=== PATIENT | female | born 1970 | race Caucasian/White ===

== ENCOUNTER → 2016-06-11 | Outpatient (CLI) | payer OTHER ==
[2015-05-05 10:48] VITALS: BP 108/64
[~2016-06-11] MED LIST: ALPR0.25 PO; CHOL100013 PO; CYCL10TA2 PO; DEXT5TAB27 PO; ESTR1PAT10 TP; ESTR1PAT27 TD; FLUO20CA16 PO; GABA-585 PO; GABA-586 PO; IBUP-1060 PO; IBUP1TAB84 PO; LAMO100T5 PO; META800T PO; META800T21 PO; METF500T PO; ONDA4TAB7 PO; OXYC-250 PO; OXYC10TA PO; OXYC10TA32 PO; OXYC20TA PO; OXYC20TA34 PO; OXYC30TA64 PO; Oxycodone Hcl/Acetaminophen PO; ROPI0.5T PO; TEST200V3 IM; TIZA4TAB PO; allergy medication
--- NOTE | 2016-06-12 02:23 | PAIN ---
DATE OF SERVICE: 06/11/2016 DIAGNOSES: Lumbar radiculopathy with lumbar degenerative disk disease, spinal stenosis and post-lumbar laminectomy syndrome. HISTORY OF PRESENT ILLNESS: The patient is a 45-year-old female who returns for followup status post medication management with OxyContin and oxycodone, also Metaxalone for muscle relaxation. The patient returns with good analgesia with the current medication regimen. Patient reports no new motor or sensory deficits, no new bowel or bladder incontinence or other complaints. She has some pain in the low back, bilateral lower extremities, but has been exercising very consistently and has actually lost a fair amount of weight since this process started, doing well with her medication regimen. Has been very stable with it, has appropriate K-TRACS reporting today and appropriate urinalysis today as well. Patient reports that the pain is anywhere from a sharp to a dull alternating pain in the low back and legs and aching as well with radiating pain in the low back and bilateral lower extremities, mostly the posterior gluteus, posterior thighs and rates it a 5 on a scale of 10 at its worse. Patient again has been increasing her activity with greater ease and comfort, ____ she is sleeping well at night and is having some stressors at work, but ____ keeping her from her workout regimens and routines and keeping herself as fit as she can. Patient reports no new motor or sensory deficits, no new bowel or bladder incontinence or other complaints. PHYSICAL EXAMINATION: VITAL SIGNS: Today patient's blood pressure is 118/72, pulse 76, respirations 18, temperature 98.0 degrees Fahrenheit, height is 5 feet 10 inches, weighs 201 pounds. GENERAL: The patient is awake, alert, oriented, appropriate, very pleasant demeanor. HEENT: Head shows normocephalic, atraumatic. Extraocular movements are intact, symmetrical. Oral cavity, mucous membranes are moist and pink. Dentition is intact. NECK: Shows anterior throat supple without palpable lymphadenopathy noted. Swallow reflex is symmetrical. Neck shows full rotation and motion of cervical spine without difficulty. CHEST: Shows normal on inspection. Breath sounds clear to auscultation bilaterally. HEART: Shows S1 and S2 clear. ABDOMEN: Soft, nontender, nondistended. No palpable organomegaly noted. No rebound or guarding demonstrated. BACK: Shows spine grossly in midline. Normal appearing thoracic kyphosis. Some mild flattening of the lumbar lordotic curvature. Well-healed surgical scar is noted in the lumbar distribution, lumbar paraspinous musculature shows some moderate tenderness with palpation, but only diffusely in the middle and lower distribution of the paraspinous muscles bilaterally and appears roughly symmetrical with no evidence of atrophy or hypertrophy. Patient shows good rotation and motion both laterally as well as extension and flexion without exacerbation of pain. EXTREMITIES: Lower extremities show deep tendon reflexes at 1+ in the patellar and tendo calcaneus tendons are equal. Motor exam is strong with 5/5 dorsiflexion and extension. Quadriceps and hamstring flexion is symmetrical on exam today. Peripheral pulses are 1+ posterior tibial and dorsalis pedis pulses. No peripheral edema is noted. No clubbing, no cyanosis. Options were discussed with the patient at this time. Patient's old chart was reviewed, as her current medication regimen and updated. Current review of systems updated today as well. We will refill patient's oxycodone, but we will decreases the extended release now from 20 mg to 10 mg q. 12 hours and maintain the breakthrough at 10 mg as well immediate release up to 5 times a day if necessary. We discussed reducing this as well on her next visit and we will have her try and work on this as well on her own reducing it over the next few months. Patient was given 90 ____ prescription for each of these with instructions and side effects to be aware of. Also refill patient's muscle relaxer with instruction, side effects to be aware of as well. Patient was counseled as to her activity level, to maintain her workout regimen and exercise as well as diet and we will follow up in approximately 90 days or sooner if necessary. COURTNEY MAJOR MD DR: MARCELO/roly JOB#: [id number] / [id number]
== END | disposition home or self-care (01) ==
LOC: PNCL 07:56
PROVIDERS: ATTEND Anesthesiology
DX: M51.16 Intervertebral disc disorders with radiculopathy, lumbar region (principal); M48.06 Spinal stenosis, lumbar region; M96.1 Postlaminectomy syndrome, not elsewhere classified
CPT/HCPCS: 99212

== ENCOUNTER → 2016-09-05 | Outpatient (CLI) | payer OTHER ==
[2015-05-05 10:48] VITALS: BP 108/64
--- NOTE | 2016-09-06 09:42 | PAIN ---
DATE OF SERVICE: 09/05/2016 DIAGNOSES: Lumbar radiculopathy with lumbar spinal stenosis, degenerative disk disease and post-lumbar laminectomy syndrome. HISTORY OF PRESENT ILLNESS: The patient is a 46-year-old female who returns for followup status post medication management with OxyContin and oxycodone, also taking Robaxin for muscle relaxation and ibuprofen. The patient reports that she has been doing very stable with her medication regimen, reports about a 75% improvement overall with the medications and without significant side effects. No constipation, no nausea, dizziness, drowsiness or itching. The patient reports her pain is anywhere from 6-8 on a scale of 10 depending on activity, worse with being on her feet, walking for distances, but has been sleeping fairly well at night except for the past week, she has been having some difficulty sleeping, but not because of pain issues. The patient reports she has had a lot of her mind, has had difficulty sleeping because of this, but she repositions and gets out of bed or walks around, this helps the sleep afterwards. The patient reports still pain in the mid back, upper back, shoulders, neck, low back, bilateral hips, bilateral lower extremities, worse on the right than the left with some radicular pain, describes as aching, dull, tight, shooting, stabbing, burning with severe, constant, radiating pain as well, which relieved with changing position or sitting after walking, also some pain in the right lower quadrant and again with recent stressful social situations, she has had increased pain in all these areas, but has not been increasing her medication usage secondary to the emotional stress. The patient relates that she is also receiving some counseling at [facility], which she feels has been beneficial thus far as well. PHYSICAL EXAMINATION: VITAL SIGNS: Today: The patient's blood pressure 145/95, pulse 98, respirations are 18, temperature 98.2 degrees Fahrenheit, height is 5 feet 8 inches, weight is 198 pounds. GENERAL: The patient is awake, alert, oriented, appropriate, very pleasant demeanor. HEENT: Head shows normocephalic, atraumatic. Extraocular movements are intact and symmetrical. Oral cavity, mucous membranes are moist and pink. Dentition is intact. NECK: Shows anterior throat supple without palpable lymphadenopathy noted. Swallow reflex is symmetrical. CHEST: Shows normal on inspection with breath sounds clear to auscultation bilaterally. HEART: Shows S1 and S2 clear. No murmurs auscultated. ABDOMEN: Soft, nontender, nondistended with some well-healed surgical scarring noted, very mild tenderness on the right lower quadrant palpation without rebound or guarding demonstrated. BACK: The patient's back shows spine grossly midline. Some mild flattening of lumbar lordotic curvature, slight increase in thoracic kyphosis, lumbar lordotic curvature is slightly flattened, lumbar paraspinous musculature shows roughly symmetrical with inspection, but without significant radiation. On palpation, only mild tenderness with palpation bilaterally. No tenderness over the sacrum or sacroiliac regions. EXTREMITIES: Lower extremities showed deep tendon reflexes at 1+ in the patellar and tendo calcaneus tendons. Motor exam is strong with dorsiflexion, extension, quadriceps and hamstring flexion. Options were discussed with the patient and the patient's old chart was reviewed and her current medication regimen updated, current review of systems updated today as well and we will refill the patient's oxycodone as well as OxyContin, Duexis, which is ibuprofen and Skelaxin for muscle relaxation. The patient was given instruction as well as side effects to be aware of with the medication. Also, the patient to follow up with her primary care physician. We discussed her having primary check estrogen levels as she has had some hair loss recently and has had some decreased energy, also to check the blood pressure as it was somewhat elevated today as well. The patient will follow up in approximately 2 months, was given instructions and discussed side effects to be aware of once again. COURTNEY MAJOR MD DR: MARCELO/roly JOB#: [id number] / [id number]
== END | disposition home or self-care (01) ==
LOC: PNCL 13:29
PROVIDERS: ATTEND Anesthesiology
DX: M48.06 Spinal stenosis, lumbar region (principal); M96.1 Postlaminectomy syndrome, not elsewhere classified
CPT/HCPCS: 99212

== ENCOUNTER → 2016-11-05 | Outpatient (CLI) | payer OTHER ==
[2015-05-05 10:48] VITALS: BP 108/64
[~2016-11-05] MED LIST changes: +BUSP10TA PO; +DEXT20CA7 PO; +LURA40TA PO; +META-21 PO; -META800T21 PO; -OXYC-250 PO; +OXYC-328 PO; -OXYC10TA32 PO; +OXYC10TA45 PO; +TRAZ50TA15 PO
== END | disposition home or self-care (01) ==
LOC: PNCL 07:27
PROVIDERS: ATTEND Anesthesiology
DX: M48.06 Spinal stenosis, lumbar region (principal); M51.16 Intervertebral disc disorders with radiculopathy, lumbar region; M96.1 Postlaminectomy syndrome, not elsewhere classified
CPT/HCPCS: 99212

== ENCOUNTER → 2016-12-26 | Outpatient (CLI) | payer OTHER ==
[2015-05-05 10:48] VITALS: BP 108/64
[~2016-12-26] MED LIST changes: +NALO25TA2 PO; +VENL37.57 PO
--- NOTE | 2016-12-26 11:42 | PAIN ---
DATE OF SERVICE: 12/26/2016 DIAGNOSES: Lumbar radiculopathy with lumbar degenerative disk disease, spinal stenosis and post-lumbar laminectomy syndrome. HISTORY OF PRESENT ILLNESS: Ms. Yancey is a 46-year-old female who returns for followup, status post medication management with OxyContin and oxycodone. We have been weaning her down slowly with this. She is having some good results with this as well. Still having some significant pain. Reports that last month has had increased pain in the low back and right leg as well as the mid back, upper back and some in the shoulders as well. The patient reports her pain is 10 on a scale of 10 at its worst, is a 5 at least, and is currently about 8 on a scale of 10, which is her average. The patient reports it awakens her from sleep, but she sleeps about 4-7 hours at night, but she can reposition, take pain medication, get out of bed, change positions, and get back to sleep. The patient reports no new motor or sensory deficits. She is having some significant counseling intervention at this point with some traumatic event counseling and they are changing antidepressants and she has just recently started on venlafaxine, which has been keeping her awake to some extent. Also has had multiple medication changes in the last month with psychiatric and antidepressants changes, and feels that her pain has been higher over the last month from that as well as some emotional stress as well. The patient reports no new motor or sensory deficits, no new bowel or bladder incontinence or other complaints, but still significant pain as noted. No side effects with the medication, and reports that overall about 75% improvement with the pain medication, except for the last month has been more like about 60%. PHYSICAL EXAMINATION: VITAL SIGNS: Today, the patient's blood pressure 140/95, pulse 78, respirations 18, temperature 98.2 degrees Fahrenheit, height is 5 feet 9 inches, weighs 207 pounds. GENERAL: The patient is awake, alert, oriented, appropriate, very pleasant demeanor. HEENT: Shows normocephalic, atraumatic. Extraocular movements are intact and symmetrical. Oral cavity, mucous membranes are moist and pink. Dentition is intact. NECK: Shows anterior throat supple, without palpable lymphadenopathy noted. Swallow reflex is symmetrical. MUSCULOSKELETAL: Neck shows full rotational motion of the cervical spine without difficulty including extension and flexion. The patient's back shows spine grossly midline. Normal appearing thoracic kyphosis and mild flattening of lumbar lordotic curvature. Previously well-healed surgical scars noted in the lumbar distribution. Lumbar paraspinous musculature shows some moderate tenderness with palpation, but only diffusely in the lower lumbar distribution bilaterally. The patient shows good rotational motion both laterally as well as extension and flexion with only very minor pain reported. The patient's lower extremities show deep tendon reflexes 2+/4 in the patellar, 1+ in tendo calcaneus tendons. Motor exam is 5/5 with dorsiflexion, extension, quadriceps and hamstring flexion and equal and symmetrical. ASSESSMENT AND PLAN: Options were discussed with the patient. The patient's old chart was reviewed, as her current medication regimen updated. Current review of systems updated today as well. We will refill the patient's OxyContin, oxycodone, Duexis, Movantik and metaxalone. The patient will go for a day or two without the metaxalone and see if there is any significant effects with this, since she is not sure if it is helping with muscle relaxation. If not, we will eliminate this medication. The patient was counseled on activity level as well as medication regimen and side effects to be aware of, but follow up in approximately 2 months or sooner as necessary. COURTNEY MAJOR MD DR: MARCELO/roly JOB#: [id number] / [id number]
== END | disposition home or self-care (01) ==
LOC: PNCL 08:13
PROVIDERS: ATTEND Anesthesiology
DX: M51.16 Intervertebral disc disorders with radiculopathy, lumbar region (principal); M96.1 Postlaminectomy syndrome, not elsewhere classified
CPT/HCPCS: 99212

== ENCOUNTER → 2017-02-20 | Outpatient (CLI) | payer OTHER ==
[2015-05-05 10:48] VITALS: BP 108/64
[~2017-02-20] MED LIST changes: +ALPR1TAB2 PO; +VENL150T PO
--- NOTE | 2017-02-20 11:39 | PAIN ---
DATE OF SERVICE: 02/20/2017 DIAGNOSES: 1. Lumbar radiculopathy with lumbar degenerative disk disease, spinal stenosis and post-lumbar laminectomy syndrome. 2. Abdominal pain. HISTORY OF PRESENT ILLNESS: The patient is a 46-year-old female who returns for followup status post medication management with oxycodone and OxyContin. The patient has been on stable regimen now for some time. She has had good success with her medications thus far, with decreasing her oxycodone from 30 to 20 to 10, and OxyContin as well decreased to 10 mg size. The patient reports still some significant pain in the low back, mid back and bilateral lower extremities, more on the right than the left, but still fairly well controlled with the medication without significant side effects except for constipation. The patient is taking Movantik, but the effect of it has been less pronounced in the last month or so. The patient reports no new motor or sensory deficits, no new bowel or bladder incontinence, but still significant constipation. Otherwise, the patient is doing fairly well with about 75% improvement in the pain with the medications without other side effects. The patient reports no new motor or sensory deficits, no new bowel or bladder incontinence or other complaints, rates her pain as an 8 on a scale of 10 at its worse, 6-7 on average and a 5 today, she has had at its lowest level. The patient reports an aching, sharp type shooting, cramping, stabbing, tingling, burning, radiating, occasionally constant. The patient has had some emotional issues that she is working through as well, has seen a psychologist and psychiatrist with good results by her report. The patient reports it is better when she is resting at night, worse on her feet and walking, wakes her from sleep occasionally. She needed reposition or take the pain medication and get back to sleep. 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 PHYSICAL EXAMINATION: VITAL SIGNS: Today, the patient's blood pressure is 143/96, pulse 91, respirations are 18, temperature 98.2 degrees Fahrenheit, height is 5 feet 9 inches, weighs 211 pounds. GENERAL: The patient is awake, alert, oriented, appropriate, very pleasant demeanor. HEENT: Head shows normocephalic, atraumatic. Extraocular movements are intact and symmetrical. Oral cavity shows mucous membranes moist and pink. Dentition is intact. NECK: Shows anterior throat supple without palpable lymphadenopathy noted. Swallow reflex is symmetrical. CHEST: Shows normal on inspection. Breath sounds are clear to auscultation bilaterally. HEART: Shows S1 and S2 clear. No murmurs auscultated. ABDOMEN: Obese, soft, nontender, nondistended. No palpable organomegaly is noted. No rebound or guarding demonstrated. BACK: Shows spine grossly midline. Some mild flattening of lumbar lordotic curvature, normal thoracic kyphotic curvature and previously well-healed surgical scars again noted. Paraspinous musculature is symmetrical on inspection and palpation, still some [id number] tenderness only diffusely bilaterally without radiation. The patient has good rotation and motion of the lumbar spine, both laterally as well as extension and flexion without difficulty. EXTREMITIES: Lower extremities showed deep tendon reflexes 1+ in the patellar and tendo calcaneus tendons are equal. Motor exam is strong with 5/5 dorsiflexion, extension and equal. Peripheral pulses are 1+ posterior tibial bilaterally. No peripheral edema is noted. Options were discussed with the patient and the patient's old chart was reviewed as her current medication regimen updated. Current review of systems updated today as well. We will refill the patient's OxyContin as well as oxycodone at 10 mg each, with instructions on side effects to be aware of. Also, we will change Movantik to Symproic with instructions on side effects to be aware of. The patient was given samples of these and refill patient's muscle relaxant as well. The patient was given instructions as well as side effects with all of the medications and will follow up in approximately 2 months, will be given 2 month prescriptions or sooner if necessary. COURTNEY MAJOR MD DR: MARCELO/roly JOB#: [id number] / [id number]
== END | disposition home or self-care (01) ==
LOC: PNCL 09:53
PROVIDERS: ATTEND Anesthesiology
DX: M51.16 Intervertebral disc disorders with radiculopathy, lumbar region (principal); M48.061 Spinal stenosis, lumbar region without neurogenic claudication
CPT/HCPCS: 99212

== ENCOUNTER → 2017-04-12 | Outpatient (CLI) | payer OTHER ==
[2015-05-05 10:48] VITALS: BP 108/64
--- NOTE | 2017-04-12 14:30 | PAIN ---
DATE OF SERVICE: 04/12/2017 DIAGNOSES: 1. Lumbar radiculopathy with lumbar degenerative disk disease, lumbar spinal stenosis and post-lumbar laminectomy syndrome. 2. Abdominal pain. HISTORY OF PRESENT ILLNESS: The patient is a 46-year-old female who returns for followup status post medication management with both OxyContin and oxycodone 10 mg each with good results. The patient is also taking metaxalone and Duexis for anti-inflammatory. The patient reports a very stable regimen. She has been very well controlled with her medication. I had been increasing her activity with some greater ease and comfort, overall about a 50% improvement. The patient reports still significant pain in the base of the neck, shoulders, upper back, mid back, low back, especially across the low back radiating to the posterior gluteus, posterior thigh on the right side more than left, some on the right side, lower abdominal pain as well, but nothing that is new. No new motor or sensory deficits, no new bowel or bladder incontinence. The patient rates her pain a 9 on a scale of 10 at its worst, 7 on average, is 4 at its least and is a 5 today. The patient reports it is aching, sharp, tight, shooting, burning, tingling and becoming more severe, more constant in the low back with activity, but better with sitting or lying down. The patient reports it does not awaken her from sleep at night. She is getting about 8 hours of sleep and is sleeping well. The patient reports no new motor or sensory deficits or other changes. PHYSICAL EXAMINATION: VITAL SIGNS: Today, the patient's blood pressure is 138/92, pulse 99, respirations 18, temperature 98.6 degrees Fahrenheit. She is 5 feet 9 inches, weighs 214 pounds. GENERAL: The patient is awake, alert, oriented, appropriate, very pleasant demeanor. HEENT: Head shows normocephalic, atraumatic. Extraocular movements intact, symmetrical. Oral cavity: Mucous membranes moist and pink. Dentition is intact. NECK: Shows anterior throat supple without palpable lymphadenopathy noted. Swallow reflex is symmetrical. CHEST: Shows normal on inspection. Breath sounds clear to auscultation bilaterally. HEART: Shows S1, S2 clear. ABDOMEN: Soft, nontender, nondistended. No palpable organomegaly is noted. No rebound or guarding demonstrated. Some minor tenderness with palpation in the right lower quadrant, but again no palpable abnormalities. BACK: Shows spine grossly in midline. Slight exaggeration of thoracic kyphosis and mild flattening of lumbar lordotic curvature. A previously well-healed surgical scar is noted in lumbar distribution. Lumbar paraspinous muscle shows symmetrical on inspection with palpation shows some moderate tenderness throughout the upper, middle, lower distribution of the paraspinous muscles bilaterally, but only diffusely without radiation. No tenderness over the sacrum or sacroiliac regions. The patient shows good rotational motion of lumbar spine, both laterally greater than 10 degrees right and left as well as extension greater than 10 degrees, forward flexion 45 degrees without significant pain reported. EXTREMITIES: Lower extremities show deep tendon reflexes at 1+ in the patellar and tendo calcaneus tendons are equal. Motor exam is strong with 5/5 dorsiflexion and extension, quadriceps and hamstring flexion is symmetrical. Peripheral pulses are 1+ posterior tibial. No peripheral edema is noted. Options were discussed with the patient. The patient's old chart was reviewed as her current medication regimen and updated. Current review of systems is updated today as well. We will proceed with refill of the patient's medications oxycodone, OxyContin as well as metaxalone and Duexis. The patient has had appropriate K-TRACS reporting to date as well as appropriate urinalysis to date. Return to clinic in approximately 2 months, was given 2-month prescription with instructions, side effects to be aware of discussed. The patient also was encouraged to increase activity as tolerated. She has been doing some stretching exercises on her own as well as trying to walk each day and she is still going to the gym about 4 days a week and encouraged her to maintain this as well. COURTNEY MAJOR MD DR: MARCELO/roly JOB#: [id number] / [id number]
== END | disposition home or self-care (01) ==
LOC: PNCL 08:11
PROVIDERS: ATTEND Anesthesiology
DX: M51.16 Intervertebral disc disorders with radiculopathy, lumbar region (principal); M48.061 Spinal stenosis, lumbar region without neurogenic claudication; R10.9 Unspecified abdominal pain
CPT/HCPCS: 99212

== ENCOUNTER → 2017-06-11 | Outpatient (CLI) | payer OTHER | END | disposition home or self-care (01) | LOC: PNCL 13:23 | DX: M51.16 Intervertebral disc disorders with radiculopathy, lumbar region (principal); M48.061 Spinal stenosis, lumbar region without neurogenic claudication; K59.00 Constipation, unspecified | CPT/HCPCS: 99212 ==

== ENCOUNTER → 2017-08-06 | Outpatient (CLI) | payer OTHER | END | disposition home or self-care (01) | LOC: PNCL 09:28 | DX: M51.16 Intervertebral disc disorders with radiculopathy, lumbar region (principal); M48.061 Spinal stenosis, lumbar region without neurogenic claudication | CPT/HCPCS: 99212 ==

== ENCOUNTER → 2017-10-01 | Outpatient (CLI) | payer OTHER | END | disposition home or self-care (01) | LOC: PNCL 09:43 | DX: M51.16 Intervertebral disc disorders with radiculopathy, lumbar region (principal); M48.061 Spinal stenosis, lumbar region without neurogenic claudication; R10.84 Generalized abdominal pain | CPT/HCPCS: 99212 ==

== ENCOUNTER → 2017-11-20 | Outpatient (CLI) | payer OTHER | END | disposition home or self-care (01) | LOC: PNCL 13:28 | DX: M51.16 Intervertebral disc disorders with radiculopathy, lumbar region (principal); M48.061 Spinal stenosis, lumbar region without neurogenic claudication | CPT/HCPCS: 99212 ==

== ENCOUNTER → 2018-02-06 | Outpatient (CLI) | payer OTHER ==
[2015-05-05 10:48] VITALS: BP 108/64
[~2018-02-06] MED LIST changes: +DEXT10TA23 PO; +LISD40CA3 PO; +MORP15TA80 PO; +OMEG1CAP38 PO; +OXYC9CAP PO; +PRAZ1CAP2 PO; +TRAZ-85 PO; -TRAZ50TA15 PO
--- NOTE | 2018-02-06 15:36 | PAIN ---
DATE OF SERVICE: 02/06/2018 PROGRESS NOTE FOR PAIN CLINIC DIAGNOSES: 1. Lumbar radiculopathy with lumbar degenerative disk disease, lumbar spinal stenosis, post-lumbar laminectomy syndrome. 2. Abdominal pain. HISTORY OF PRESENT ILLNESS: The patient is a 47-year-old female who returns for followup status post medication management with both oxycodone and MS Contin. The patient reports she has been doing well with the medication without significant side effects, have been very stable with overall about 80% improvement without side effects. The patient reports still some pain in the low back, bilateral lower extremities, somewhat worse on the right than the left, but present bilaterally and also some significant pain in her left wrist. She has seen bombsight specialist for this. The patient reports the pain in her back and her legs is 9 on a scale of 10 at its worst, 7-8 on average, 5 at its least and is a 5 today. The patient reports it is aching, sharp, sometimes tight, shooting, burning, cramping, stabbing, radiating at times, sometimes severe and unbearable mostly when she is only on her feet for a prolonged period of time. The patient reports no new motor or sensory deficits, no new bowel or bladder incontinence or other complaints. She reports she has started working out with a salesforce trainer about 3 times a week and this seems to be helping too and she is losing some weight as well. The patient reports no new motor or sensory deficits, no new bowel or bladder incontinence or other complaints. PHYSICAL EXAMINATION: VITAL SIGNS: Today, blood pressure is 132/102, pulse 88, respirations 16, temperature 98.3 degrees Fahrenheit, height is 5 feet 10 inches, weight is 218 pounds. GENERAL: The patient is awake, alert, oriented, appropriate, very pleasant demeanor. HEENT: Head is normocephalic, atraumatic. Extraocular movements are intact, symmetrical. Oral cavity: Mucous membranes moist and pink. Dentition is intact. NECK: Shows anterior throat supple without palpable lymphadenopathy noted. Swallow reflex is symmetrical. CHEST: Shows normal on inspection. Breath sounds clear to auscultation bilaterally. HEART: Shows S1, S2 clear. No murmurs auscultated. ABDOMEN: Soft, nontender, nondistended. No palpable organomegaly is noted. Some mild tenderness in the left upper quadrant with well-healed surgical scarring noted, but no rebound or guarding demonstrated. BACK: The patient's back shows spine grossly in the midline. Normal appearing thoracic kyphosis, some minor flattening of lumbar lordotic curvature. Well healed surgical scar is noted in the lumbar distribution. Lumbar paraspinous muscle shows symmetrical on inspection, on palpation shows some moderate tenderness, but only diffusely without radiation. EXTREMITIES: The patient's lower extremities show deep tendon reflexes at 2+ in the patellar, 1+ tendo calcaneus tendons. Motor exam is strong with 5/5 dorsiflexion, extension, quadriceps and hamstring flexion and symmetrical as well. Options were discussed with the patient. The patient's old chart was reviewed as her current medication regimen updated. Current review of systems updated today as well. We will proceed with refill of the patient's MS Contin as well as oxycodone with instructions, side effects to be aware of discussed with each of the medications. The patient has been on very stable regimen, has had appropriate K-TRACS reporting as well as appropriate urinalysis to date and we will refill the patient's medications for 2-month period. Instructions side effects to be aware of with medication were again covered and the patient will follow up in approximately 2 months or sooner if necessary. COURTNEY MAJOR MD DR: MARCELO/roly JOB#: [id number] / [id number]
== END | disposition home or self-care (01) ==
LOC: PNCL 08:08
PROVIDERS: ATTEND Anesthesiology
DX: M51.16 Intervertebral disc disorders with radiculopathy, lumbar region (principal); M48.061 Spinal stenosis, lumbar region without neurogenic claudication; M96.1 Postlaminectomy syndrome, not elsewhere classified; R10.84 Generalized abdominal pain
CPT/HCPCS: 99212

== ENCOUNTER → 2018-03-27 | Outpatient (CLI) | payer OTHER ==
[2015-05-05 10:48] VITALS: BP 108/64
[~2018-03-27] MED LIST changes: -OXYC-328 PO; -OXYC10TA45 PO; +OXYC10TA46 PO; +OXYC1TAB22 PO
--- NOTE | 2018-03-27 12:04 | PAIN ---
DATE OF SERVICE: 03/27/2018 DIAGNOSES: 1. Lumbar radiculopathy with lumbar spinal stenosis, lumbar degenerative disk disease, post-lumbar laminectomy syndrome. 2. Abdominal pain. HISTORY OF PRESENT ILLNESS: The patient is a 47-year-old female who returns for followup status post medication management with both MS Contin and oxycodone for breakthrough. She is doing very well with this, reports a very stable regimen, reports about 75-80% improvement in her pain overall, still some pain in the left lower extremity, which has been increasing lately. We did an MRI scan on her in 10/2017, which did not show any specific deficits from preexisting surgery and hemilaminectomy changes at L3-L4, with some bulging L4-L5, but no severe stenosis or other significant findings. The patient reports it is an aching, sharp, dull, tight, shooting in the left leg, posterior gluteus, posterolateral thigh, lateral anterior thigh, anterior medial thigh, into the lower leg and foot, tingling, burning, cramping, stabbing, becoming more severe, more constant. She has not been working out with her drafter geophysical secondary to the pain for about 3 weeks now. The patient reports she has been able to weightbear on it and is sleeping fairly well, but she is sleeping in a recliner now, with the pain wakes her still about every 4-5 hours from sleep. The patient reports no new motor or sensory deficits, no new bowel or bladder incontinence, no side effects with the medication. PHYSICAL EXAMINATION: VITAL SIGNS: The patient's blood pressure is 128/99, pulse 81, respirations 18, temperature 98.4 degrees Fahrenheit, height is 5 feet 10 inches, weighs 225 pounds. GENERAL: The patient is awake, alert, oriented, appropriate, very pleasant demeanor. HEENT: Head shows normocephalic, atraumatic. Extraocular movements are intact and symmetrical. Oral cavity shows mucous membranes moist and pink. Dentition is intact. NECK: Shows anterior throat supple without palpable lymphadenopathy noted. Swallow reflex symmetrical. CHEST: Shows normal on inspection. Breath sounds clear to auscultation bilaterally. HEART: Shows S1, S2 clear. No murmurs auscultated. ABDOMEN: Obese, soft, nontender, nondistended. No palpable organomegaly is noted. No rebound or guarding demonstrated. BACK: Shows spine grossly in the midline. Normal appearing thoracic kyphosis and lumbar lordotic curvature with some well-healed surgical scar noted in the lumbar distribution. Lumbar paraspinous muscle shows symmetrical on inspection and palpation shows some moderate tenderness but only diffusely bilaterally in the low lumbar distribution only. EXTREMITIES: The patient's lower extremities show deep tendon reflexes at 1+ in the patellar and tendo-calcaneus tendons. Motor exam is strong with approximately 4 on a scale of 5, but equal and symmetrical on dorsiflexion, extension, quadriceps and hamstring flexion. Peripheral pulses are 1+ posterior tibia. No peripheral edema is noted bilaterally. Options were discussed with the patient. The patient's old chart was reviewed, as her current medication regimen updated. Current review of systems updated today as well. We will refill the patient's MS Contin as well as oxycodone for 2 months period. The patient had appropriate K-TRACS reporting as well as appropriate urinalysis to date. Also discussed increasing her activity, getting back with her personal care worker to increase her activity and stretching strengthening exercises, especially. The patient acknowledges this and would like to do this as well and feels that she just needs motivation to get done. We discussed that in some detail today, and she will make that arrangement. The patient will follow up in approximately 2 months as scheduled. The patient was given instruction as well as side effects to be aware with each of these for medications. COURTNEY MAJOR MD DR: MARCELO/roly JOB#: [id number] / [id number]
== END | disposition home or self-care (01) ==
LOC: PNCL 08:27
PROVIDERS: ATTEND Anesthesiology
DX: M51.16 Intervertebral disc disorders with radiculopathy, lumbar region (principal); M48.061 Spinal stenosis, lumbar region without neurogenic claudication; M96.1 Postlaminectomy syndrome, not elsewhere classified; R10.84 Generalized abdominal pain
CPT/HCPCS: 99212

== ENCOUNTER → 2018-05-06 | Outpatient (CLI) | payer OTHER ==
[2015-05-05 10:48] VITALS: BP 108/64
[~2018-05-06] MED LIST changes: +BUPIVACAINE MPF 0.25% 10 ML VIAL. ONE; -GABA-586 PO; +GABA300C18 PO; +methylPREDNISolone ACETATE 40 MG/ML VIAL. ONE
--- NOTE | 2018-05-07 02:24 | PAIN ---
DATE OF SERVICE: 05/06/2018 DIAGNOSES: 1. Lumbar radiculopathy with lumbar spinal stenosis, lumbar degenerative disk disease and post-lumbar laminectomy syndrome. 2. Abdominal pain. 3. Myofascial pain. HISTORY OF PRESENT ILLNESS: The patient is a 47-year-old female who returns to followup status post medication management with both oxycodone and MS Contin. The patient reports she had been doing fairly well with this and has been taking the immediate release oxycodone on schedule fairly significantly. She has had increased pain in the low back and the left side, radiating to posterior gluteus, posterior lateral thigh, lateral posterior calf, into the lateral and posterior ankle on the left side across the low back, mostly on the left, though there is no specific injury or action she is aware of, has been getting worse with time. We had called the Medrol Dosepak into her on 04/14/2018, which did not help significantly, maybe 10%. The patient reports no recent injuries, still significant pain in the low back, left lower extremity, increasing in a radicular quality. The patient reports it is a 10 on a scale of 10 at its worst, 9-10 on average, 8 at its least and is a 9 today. The patient reports it is aching, tight, shooting, stabbing, cramping, burning, radiating, becoming more constant, more severe and she has been having her leg give out on her when she is walking as well on the left side. The patient reports it is awakening her from sleep at night at least every 2-3 hours. She is sleeping in a reclining chair over the past month or so. The patient reports no new motor or sensory changes or other deficits. No bowel or bladder incontinence. PHYSICAL EXAMINATION: VITAL SIGNS: The patient's blood pressure 130/84, pulse 87, respirations 18, temperature 98.2 degrees Fahrenheit, height is 5 feet 10 inches and weight is 225 pounds. GENERAL: The patient is awake, alert, oriented, appropriate, very pleasant demeanor. HEENT: Shows normocephalic, atraumatic. Extraocular movements are intact and symmetrical. Oral cavity: Mucous membranes moist and pink. Dentition is intact. NECK: Shows anterior throat supple without palpable lymphadenopathy noted. Swallow reflex is symmetrical. CHEST: Shows normal on inspection. Breath sounds are clear to auscultation bilaterally. HEART: Shows S1, S2 clear. No murmurs auscultated. ABDOMEN: Soft, obese, nontender, nondistended. No palpable organomegaly is noted. No rebound or guarding demonstrated. BACK: The patient's back shows spine grossly in the midline, slight exaggeration of thoracic kyphosis with minor flattening of lumbar lordotic curvature. Previously well-healed surgical scar is noted. With palpation in the paraspinous musculature shows significant tenderness, very firm rope-like musculature in the left mid upper lumbar paraspinous musculature compared to the right, very firm, very tender to palpation, consistent with trigger point areas of musculature without specific radiation. The patient has good rotational motion of lumbar spine with extension and flexion, with some minor tenderness with forward flexion in the same region left of midline. No tenderness over the spinous processes, sacrum or sacroiliac regions. EXTREMITIES: The patient's lower extremities show deep tendon reflexes 1+ in the patellar and tendo calcaneus tendons. Motor exam is strong with 5/5 dorsiflexion, extension and equal bilaterally. Peripheral pulses are 1+ posterior tibia bilaterally. No peripheral edema is noted. Options were discussed with the patient. The patient's old chart was reviewed as her current medication regimen updated. Current review of system is updated today as well and we will proceed with trigger point injection of the left lumbar paraspinous musculature. Risks were discussed including, but not limited to bleeding, infection, possibility of intravascular injection sequelae, spread of local anesthetic and numbness, side effects of steroid medication and poor results regarding pain control. The patient understands and wished to proceed. The patient will return to the clinic in approximately 2 weeks for followup, was counseled on return appointment, activity level and side effects to be aware of. The patient has new narcotic contract, which will be signed today. The patient has had appropriate K-TRACS reporting as well as appropriate urinalysis to date. We will give the patient additional immediate release oxycodone 15 mg with instructions and side effects to be aware of discussed for temporary increased low back and left lower extremity pain. I also ordered MRI scan of the lumbar spine to better evaluate the radicular quality as she had a scan on 11/12/2017, which did not show any specific explanation for left lumbar radiculopathy; however, this has changed significantly over the past 1-2 months. The patient will follow up after MRI scan is performed and we will proceed once this is evaluated. COURTNEY MAJOR MD DR: MARCELO/roly JOB#: [id number] / [id number]
--- NOTE | 2018-06-05 20:50 | PAIN ---
DATE OF SERVICE: 06/05/2018 ADDENDUM DIAGNOSES: 1. Myofascial pain. 2. Lumbar radiculopathy with lumbar spinal stenosis, lumbar degenerative disk disease and post lumbar laminectomy syndrome. PROCEDURE: Trigger point injections of the left lumbar paraspinous musculature under sterile prep and drape using local anesthetic. MEDICATION INJECTED: A total of 6 mL of 0.25% bupivacaine and 2 mL per 3 trigger point injections after negative aspiration at each injection site. CONDITION AT DISCHARGE: Stable. The patient tolerated procedure well, had no complications. COURTNEY MAJOR MD DR: MARCELO/roly JOB#: [id number] / [id number]
== END | disposition home or self-care (01) ==
LOC: PNCL 14:19
PROVIDERS: ATTEND Anesthesiology
DX: M79.18 Myalgia, other site (principal); M51.16 Intervertebral disc disorders with radiculopathy, lumbar region; M48.061 Spinal stenosis, lumbar region without neurogenic claudication; M96.1 Postlaminectomy syndrome, not elsewhere classified
CPT/HCPCS: 20552; J1030; J3490; 20553

== ENCOUNTER → 2018-06-12 | Outpatient (CLI) | payer OTHER ==
[2015-05-05 10:48] VITALS: BP 108/64
[~2018-06-12] MED LIST changes: -BUPIVACAINE MPF 0.25% 10 ML VIAL. ONE; -methylPREDNISolone ACETATE 40 MG/ML VIAL. ONE
--- NOTE | 2018-06-12 22:39 | PAIN ---
DATE OF SERVICE: 06/12/2018 PROGRESS NOTE FOR PAIN CLINIC DIAGNOSES: Lumbar radiculopathy with lumbar spinal stenosis, lumbar degenerative disk disease and post-lumbar laminectomy syndrome. HISTORY OF PRESENT ILLNESS: The patient is a 47-year-old female who returns for followup status post trigger point injection of the left lumbar paraspinous muscle. The patient reports it is very much improved after that about 90%. Still some spasticity in the pain in the left leg but the main concern is left lower extremity pain in a radicular fashion, which has gotten slightly better but still worse with walking, standing and weightbearing. The patient has had difficulty getting an MRI scheduled as we have ordered this twice now with the comic writer film was done regular plain film of the lumbar spine without any significant acute findings but still awaiting the MRI scan, which will be scheduled as soon as we have reordered it and she will [facility]. The patient reports otherwise no new motor or sensory deficits, doing well with her medications with about a 70% improvement with the medications without significant side effects. The patient is taking oxycodone as well as MS Contin 15 mg twice a day and oxycodone 10 mg for p.r.n. breakthrough pain. The patient describes her pain as a burning, cramping, stabbing, sharp, dull, shooting in the left lower extremity, radiating, severe at times and becoming more noticeable and constant. The patient has not been working out as she has had too much pain to do so, has been waking her from sleep at night, fairly frequently. The patient reports it is a 10 on scale of 10 at its worst, 7-8 on average and 6-7 at its least and is a 7 today. The patient reports no new motor or sensory deficits or other complaints. PHYSICAL EXAMINATION: VITAL SIGNS: The patient's blood pressure 141/94, pulse 87, respirations 16 and temperature 98.1 degrees Fahrenheit. Weight is 229 pounds. GENERAL: The patient is awake, alert, oriented, appropriate and very pleasant demeanor. HEENT: Head is normocephalic and atraumatic. Extraocular movements are intact and symmetrical. Oral cavity: Mucous membranes moist and pink. Dentition is intact. NECK: Shows anterior throat supple without palpable lymphadenopathy noted. Swallow reflex symmetrical. CHEST: Shows normal with inspection. Breath sounds clear to auscultation bilaterally. HEART: Shows S1 and S2 clear. No murmurs auscultated. ABDOMEN: Obese, soft, nontender and nondistended. No palpable organomegaly is noted. No rebound or guarding demonstrated. BACK: Shows spine grossly in the midline. Normal thoracic kyphosis, lumbar lordotic curvature is slightly flattened. Paraspinous musculature shows symmetrical but without atrophy or hypertrophy and on palpation shows some moderate tenderness throughout the upper, middle, lower distribution of the paraspinous muscles without significant radiation. EXTREMITIES: Lower extremities show deep tendon reflexes 1+ in the patellar and tendo-calcaneus tendons are equal. Motor exam is 5/5 with dorsiflexion and extension. Peripheral pulses are 1+. No peripheral edema is noted. Options were discussed with the patient. The patient's old chart was reviewed as well as her current medication regimen updated. Current review of systems updated today as well. We will refill the patient's MS Contin as well as oxycodone for 2-month prescription. The patient has had appropriate K-TRACS reporting as well as appropriate urinalysis to date and we refilled this on a 2-month period. The patient will return to the clinic in approximately 2 months or sooner. Once the MRI scan is obtained, we will review this with her and proceed depending on the results from that if necessary. COURTNEY MAJOR MD DR: MARCELO/roly JOB#: [id number] / [id number]
== END | disposition home or self-care (01) ==
LOC: PNCL 14:37
PROVIDERS: ATTEND Anesthesiology
DX: M48.061 Spinal stenosis, lumbar region without neurogenic claudication (principal); M51.16 Intervertebral disc disorders with radiculopathy, lumbar region; M96.1 Postlaminectomy syndrome, not elsewhere classified
CPT/HCPCS: G0463

== ENCOUNTER → 2018-06-25 | Outpatient (CLI) | payer OTHER ==
[2015-05-05 10:48] VITALS: BP 108/64
[~2018-06-25] MED LIST changes: +BUPIVACAINE MPF 0.25% 10 ML VIAL. ONE; +TRAZ-118 PO; -TRAZ-85 PO; +methylPREDNISolone ACETATE 40 MG/ML VIAL. ONE
--- NOTE | 2018-06-25 21:58 | PAIN ---
DATE OF SERVICE: 06/25/2018 PROGRESS NOTE FOR PAIN CLINIC DIAGNOSES: 1. Myofascial pain. 2. Lumbar radiculopathy with lumbar spinal stenosis, degenerative disk disease and post-lumbar laminectomy syndrome. HISTORY OF PRESENT ILLNESS: The patient is a 47-year-old female who returns for followup status post medication management and trigger point injections. The patient did well with the trigger point injections on 05/06/2018. The patient had a refill of medications, oxycodone and MS Contin, morphine sulfate extended release. The patient reports that her pain is increasing significantly. We had ordered an MRI scan, which has been taking a very long time to get this approved with her insurance provider and get it scheduled. The patient has still not had the MRI scan done. We discussed this and if it is not approved in the next 1-2 days, we will resubmit for approval as she has significant pain in the low back and left lower extremity in radicular fashion and also significant pain developing in the low back, which responded well to trigger point injections when it was performed in April. The patient reports the pain is a 10 on a scale of 10 at its worst, 9 on average, 7 to 8 at its least and is a 9 today. The patient reports it is aching, sharp sometimes, tight, shooting, tingling, burning, cramping, stabbing, radiating to the left leg, posterior gluteus, posterior thigh, lateral thigh, posterior calf, becoming more constant and severe and more unbearable with reaching forward, standing, walking, keeping her from sleep at night, she is awakened about every 2 hours or to 3 hours from the sleep to reposition and take pain medication. She has been increasing her pain medication consumption and reports she is running very low on her 1 month prescription, which is about 3 days early for a refill. PHYSICAL EXAMINATION: VITAL SIGNS: Today, the patient's blood pressure is 120/83, pulse 98, respirations are 18, temperature 97.8 degrees Fahrenheit, height is 5 feet 10 inches and weight is 226 pounds. GENERAL: The patient is awake, alert, oriented, appropriate, very pleasant demeanor. HEENT: Head shows normocephalic and atraumatic. Extraocular muscles are intact and symmetrical. Oral cavity, mucous membranes are moist and pink. Dentition is intact. NECK: Shows anterior throat is supple without palpable lymphadenopathy noted. Swallow reflex is symmetrical. CHEST: Shows normal on inspection. Breath sounds are clear to auscultation bilaterally. HEART: Shows S1 and S2 clear. No murmurs are auscultated. ABDOMEN: Soft, nontender and nondistended. No palpable organomegaly is noted. Some well healed surgical scarring is demonstrated. BACK: Shows spine grossly in the midline. Normal appearing thoracic kyphosis and mild flattening of the lumbar lordotic curvature. Lumbar paraspinous muscle shows symmetrical on inspection. On palpation shows some moderate tenderness diffusely bilaterally, but much more significant in the lower thoracic and mid to upper distribution of the lumbar paraspinous musculature on the left greater than the right, very firm rope-like musculature, very firm, very tender about a 10 cm superior to inferior distribution and approximately 10 cm wide as well. Very firm, very tender with rope-like musculature consistent with trigger point areas of muscle in this region. Right side is supple and nonspecifically tender without trigger points. Options were discussed with the patient. The patient's old chart was reviewed as was her current medication regimen updated. Current review of systems updated today as well and we will proceed with trigger point injections of the left thoracic and left paraspinous musculature under sterile prep and drape. Risks were discussed including but not limited to bleeding, infection, possibility of intravascular injection sequelae, spread of local anesthetic and numbness, side effects of steroid medication and poor results regarding pain control. The patient understands and wished to proceed. The patient will return to the clinic in approximately 2 weeks as scheduled. We will again try and get her MRI scan approved and performed as she does have significant radicular component in the left leg and work on this in the next 1-2 days as well with resubmission if necessary for the MRI scan itself. The patient was given a new prescription for oxycodone 15 mg to take on the q.4-6h basis for increased pain pending MRI scan performance and results. The patient will return to the clinic as scheduled. COURTNEY MAJOR MD DR: MARCELO/roly JOB#: [id number] / [id number]
== END | disposition home or self-care (01) ==
LOC: PNCL 12:53
PROVIDERS: ATTEND Anesthesiology
DX: M79.18 Myalgia, other site (principal); M51.16 Intervertebral disc disorders with radiculopathy, lumbar region; M48.061 Spinal stenosis, lumbar region without neurogenic claudication; M96.1 Postlaminectomy syndrome, not elsewhere classified
CPT/HCPCS: 20553; J1030; J3490

== ENCOUNTER → 2018-07-22 | Outpatient (CLI) | payer OTHER ==
[2015-05-05 10:48] VITALS: BP 108/64
[~2018-07-22] MED LIST changes: -BUPIVACAINE MPF 0.25% 10 ML VIAL. ONE; -methylPREDNISolone ACETATE 40 MG/ML VIAL. ONE
--- NOTE | 2018-07-23 03:33 | PN ---
DATE: 07/22/2018 DIAGNOSES: 1. Myofascial pain. 2. Lumbar radiculopathy with lumbar degenerative disk disease, lumbar spinal stenosis and post-lumbar laminectomy syndrome. HISTORY OF PRESENT ILLNESS: This is a 47-year-old female who returns for status post medication management with both MS Contin and oxycodone. The patient reports she has been doing fairly well, but is having some significant pain in the left lower extremity in a radicular fashion. We had obtained an MRI scan with and without contrast and went over that with her today, showing mild lumbar levoscoliosis with redemonstration of multilevel intervertebral disk bulge, protrusion with slight interval increase at L3-L4, no central canal stenosis, no foraminal stenosis identified, granulation tissue in the right L3-L4 neural foramen with ____ of the right L3 nerve root. The patient continues to have still left-sided lower extremity pain in the posterior gluteus and leg where the patient reports it is not radiating as far into the leg as it was previously, mostly into the left posterior hip and across the low back, more on the left side in the mid back as well. The patient reports pain is a 10 on a scale of 10 at its worst, 8 on average, 6 at its least, and is an 8 today. The patient is an aching, sharp, dull, tight, cramping, shooting, tingling, burning, radiating, and severe at times, unbearable at times with walking, standing, or prolonged sitting. The patient reports it awakens her from sleep at night if she does not lay flat on her back. Difficulty again with walking and doing household activities, work activities as well. The patient reports her pain medicine does decrease the pain by a fairly significant amount about 75-80% and without significant side effects, reports that the extended release MS Contin does not seem to be lasting full 12 hours. The patient reports more like about 8 hours, especially when she is up and active. The patient reports no new motor or sensory deficits, no new bowel or bladder incontinence or other side effects. PHYSICAL EXAMINATION: VITAL SIGNS: Today, the patient's blood pressure 119/85, pulse 93, respirations 18, temperature 98.2 Fahrenheit, height 5 feet 10 inches, weight is 226 pounds. GENERAL: The patient is awake, alert, oriented, appropriate, very pleasant demeanor. HEENT: Head shows normocephalic, atraumatic. Extraocular movements intact and symmetrical. Oral cavity: Mucous membranes moist and pink. Dentition is intact. NECK: Shows anterior throat supple without palpable lymphadenopathy noted. Swallow reflex symmetrical. CHEST: Shows normal with inspection. Breath sounds clear to auscultation bilaterally. HEART: Shows S1, S2 clear. No murmurs auscultated. ABDOMEN: Obese, soft, nontender, nondistended with well-healed surgical scarring noted. No organomegaly is palpated. No rebound or guarding demonstrated. BACK: Shows spine grossly in the midline, slight exaggeration of thoracic kyphosis with minor flattening of lumbar lordotic curvature. Well-healed surgical scar in the lumbar distribution. Paraspinous muscle shows symmetrical on inspection with palpation, some moderate tenderness, more on the left than the right throughout the upper, middle, and lower distribution of paraspinous muscles, but only diffusely without radiation. The patient has good rotational motion of lumbar spine, both laterally greater than 10 degrees right and left as well as extension greater than 10 degrees, forward flexion 45 degrees without significant discomfort. EXTREMITIES: Lower extremities show deep tendon reflexes at 1+ in the patellar and tendo-calcaneus tendons. Motor exam is 5/5 with dorsiflexion, extension, quadriceps, and hamstring flexion and symmetrical. Peripheral pulses are 1+ posterior tibial. No peripheral edema is noted. Options were discussed with the patient. The patient's old chart was reviewed and current medication regimen updated. Current review of systems updated today as well. We will refill the patient's MS Contin at 30 mg as well as oxycodone at 10 mg. The patient was given instruction as well as side effects to be aware of with medication. The patient had appropriate K-TRACS reporting as well as appropriate urinalysis to date. We will refill this for two month period, to be filled 08/06/2018 as she does have overlapping prescription form earlier last month. The patient was given a copy of her MRI scan as well by her request and will follow up in approximately 60 days or sooner if necessary. COURTNEY MAJOR MD DR: MARCELO/roly JOB#: [id number] / [id number]
== END | disposition home or self-care (01) ==
LOC: PNCL 13:55
PROVIDERS: ATTEND Anesthesiology
DX: M51.16 Intervertebral disc disorders with radiculopathy, lumbar region (principal); M48.061 Spinal stenosis, lumbar region without neurogenic claudication; M96.1 Postlaminectomy syndrome, not elsewhere classified; M79.18 Myalgia, other site
CPT/HCPCS: G0463

== ENCOUNTER → 2018-10-06 | Outpatient (CLI) | payer OTHER ==
[2015-05-05 10:48] VITALS: BP 108/64
--- NOTE | 2018-10-07 00:11 | PAIN ---
DATE OF SERVICE: 10/06/2018 PROGRESS NOTE FOR PAIN CLINIC: DIAGNOSES: 1. Myofascial pain. 2. Lumbar radiculopathy with lumbar degenerative disk disease and lumbar spinal stenosis and post-laminectomy syndrome. HISTORY OF PRESENT ILLNESS: The patient is a 48-year-old female who returns for followup, status post medication managed with both oxycodone and MS Contin extended release. The patient reports she has been doing fairly well overall about 75% improvement, but lately pain has been increasing in the mid back and shoulders. She has been increasing her activity. Recently, she has been working out at home using elliptical machine and some other resistive upper body exercises, which she seems to believe this is helping decrease the pain to some extent. The patient reports it is still aching and sharp type shooting across the shoulders and the low back, there is tingling and burning in fingers and feet has some tingling as well as a stabbing pain in the neck and shoulder as well as the left arm. It is radiating, sometimes constant, sometimes severe with activity, but better with rest. The patient reports that it generally awakens her about every 4 hours or so from sleep. She can easily reposition and get back to sleep. The patient reports her pain is 9 on a scale of 10 at the worst over the past week, 7 at its least, 8 is average and is an 8 today. The patient reports no new motor or sensory deficits. No new side effects with the medications and fortunately she feels that she is fairly stable and the medication does allow her to perform most of her daily activities without significant limitation. The patient reports no new motor or sensory deficit. No new bowel or bladder incontinence or other complaints. OBJECTIVE: VITAL SIGNS: Blood pressure 128/84, pulse 83, respirations 18, temperature 98.1 degrees Fahrenheit, height 5 feet 10 inches, weighs 223 pounds. GENERAL: The patient awake, alert, oriented, appropriate, very pleasant demeanor. HEENT: Head shows normocephalic and atraumatic. Extraocular movements are intact and symmetrical. Oral cavity: Mucous membranes moist and pink. NECK: Shows anterior throat supple without palpable lymphadenopathy noted. Swallow reflex symmetrical. Neck shows full rotation of the motion with some minor tenderness with extension, not with forward flexion. Right and left lateral rotations performed with some minor guarding to the right, but not to the left. CHEST: Shows normal on inspection. Breath sounds clear bilaterally. HEART: Shows S1 and S2 clear. ABDOMEN: Obese, soft, nontender and nondistended. No palpable organomegaly is noted. No rebound or guarding demonstrated. BACK: Shows spine grossly in the midline, slight exaggeration of thoracic kyphosis and minor flattening of the cervical and lumbar lordotic curvatures. Cervical paraspinous musculature shows symmetrical with inspection, on palpation shows some moderate tenderness diffusely bilaterally, but only diffusely without significant radiation. The patient's lower back shows some moderate tenderness with well-healed surgical scar in the lumbar distribution. With palpation shows some mild tenderness diffusely bilaterally in the low lumbar distribution without radiation. No trigger points. The patient has good rotational motion of the lumbar spine as well greater than 10 degrees right and left with extension greater than 10 degrees, forward flexion 45 degrees without significant limitation. No tenderness over the sacrum or sacroiliac regions. LOWER EXTREMITIES: Shows deep tendon reflexes 1+ in the patellar and tendo-calcaneus tendons. Motor exam is strong with dorsiflexion, extension, quadriceps and hamstring flexion equal and rated 5/5 bilaterally. UPPER EXTREMITIES: Show deep tendon reflexes 2+ in the biceps tendons and 5/5 surgery technician strength in the biceps and triceps flexion and symmetrical as well. Peripheral pulses are 2+ radial, 1+ posterior tibial. No peripheral edema is noted throughout. Options were discussed with the patient. The patient's old chart was reviewed as well as her current medication regimen updated. Current review of systems updated today as well and we will refill the patient's medications. She has been on a very stable regimen of MS Contin as well as oxycodone for breakthrough pain. The patient has had appropriate K-TRACS reporting, as well as appropriate urinalysis to date. We will refill this for 2 months. The patient was also given some [id number] ideas for constipation as she has tried Symproic as well as Movantik with increased abdominal cramping with each of these and we will try some uxvl-fpt-[id number] remedies as well as maintaining hydration, which she is currently doing as well. The patient will continue with stretching and strengthening exercises working at home as described and will follow up in approximately 2 months or sooner as necessary. COURTNEY MAJOR MD DR: MARCELO/roly JOB#: [id number] / [id number]
== END | disposition home or self-care (01) ==
LOC: PNCL 13:23
PROVIDERS: ATTEND Anesthesiology
DX: M51.16 Intervertebral disc disorders with radiculopathy, lumbar region (principal); M48.061 Spinal stenosis, lumbar region without neurogenic claudication; M96.1 Postlaminectomy syndrome, not elsewhere classified; M79.18 Myalgia, other site; Z79.899 Other long term (current) drug therapy; Z79.891 Long term (current) use of opiate analgesic
CPT/HCPCS: G0463

== ENCOUNTER → 2018-10-17 | Outpatient (CLI) | payer OTHER ==
[2015-05-05 10:48] VITALS: BP 108/64
[~2018-10-17] MED LIST changes: +BUPIVACAINE MPF 0.25% 10 ML VIAL. ONE; +methylPREDNISolone ACETATE 40 MG/ML VIAL. ONE
--- NOTE | 2018-10-17 11:25 | PAIN ---
DATE OF SERVICE: 10/17/2018 PROGRESS NOTE FOR PAIN CLINIC DIAGNOSES: 1. Myofascial pain. 2. Lumbar radiculopathy with lumbar degenerative disk disease, lumbar spinal stenosis and post-lumbar laminectomy syndrome. HISTORY OF PRESENT ILLNESS: The patient is 48-year-old female who returns for followup status post medication management, most recently in 10/06/2018. The patient reports that she called yesterday with increasing pain in the low back on left side and mid back and we had her come in today for evaluation. She has significant pain and spasticity in the left low back and into the mid back as well, without any specific injury or accident recently. The patient reports she has not done anything OUT of the ordinary as far as any lifting, excessive exercise or activity. She is still working out without any new specific injury that has increased the pain, but the pain is increasing in the low back, mid back on the left side only. It is burning, cramping, stabbing, sharp and dull, alternating; difficulty with standing, walking, changing positions, specifically standing up from a seated position and with walking. The patient reports pain is 9 on a scale of 10 at its worst, 8 on average, 4 at its least over the past few days and is 8 today. The patient reports it is slowly getting better on its own after the past 24 hours, but still significantly painful. The patient reports it awakens him from sleep at night at an interval of 4-5 hours. The patient reports no new motor or sensory deficits, no new bowel or bladder incontinence or other complaints. No side effects with her medications. PHYSICAL EXAMINATION: VITAL SIGNS: The patient's blood pressure is 126/82, pulse 90, respirations 16, temperature is 98.5 degrees Fahrenheit. Height is 5 feet 10 inches, weight is 226 pounds. GENERAL: The patient is awake, alert, oriented, appropriate, very pleasant demeanor. HEENT: Head shows normocephalic, atraumatic. Extraocular muscles are intact and symmetrical. Oral cavity: Mucous membranes moist and pink. Dentition is intact. NECK: Shows anterior throat supple without palpable lymphadenopathy noted. Swallow reflex symmetrical. CHEST: Shows normal on inspection. Breath sounds clear bilaterally. HEART: Shows S1, S2 clear. No murmurs auscultated. ABDOMEN: Obese, soft, nontender, nondistended. BACK: Shows spine grossly in the midline. Normal-appearing thoracic kyphosis and minor flattening of lumbar lordotic curvature. Palpation of lumbar and thoracic paraspinous musculature on the left side compared to the right is slightly hypertrophied, but very firm rope-like musculature, very tender to palpation without specific radiation. This is true throughout the lower thoracic paraspinous muscular and the entire lumbar paraspinous musculature on the left side only. Right side is supple without specific trigger points, without specific pain; left side again very firm rope-like musculature consistent with trigger point areas of muscle without radiation, however. The patient has good rotational motion of lumbar spine, slightly more tender with rotating to the left greater than 10 degrees in extension, but not with forward flexion. EXTREMITIES: Lower extremities show deep tendon reflexes 1+ in the patellar and tendo calcaneus tendons. Motor exam is 5/5 with dorsiflexion, extension and equal. Options were discussed with the patient. The patient's old chart was reviewed as was his current medication regimen updated. Current review of systems updated today as well. We will proceed with trigger point injection of the thoracic and lumbar paraspinous musculature on the left side only. Risks were discussed including but not limited to bleeding, infection, possibility of intravascular injection sequelae, spread of local anesthetic and numbness, pneumothorax, side effects of steroid medication and poor results regarding pain control. The patient understands and wished to proceed. The patient will return to clinic in approximately 4 weeks as scheduled or sooner if necessary. DIAGNOSIS: Myofascial pain. PROCEDURE: Trigger point injections, left thoracic paraspinous muscular and left lumbar paraspinous musculature under sterile prep and drape using local anesthetic. MEDICATION INJECTED: A total of 40 mg Depo-Medrol plus total of 7 mL of 0.25% bupivacaine after negative aspiration at each injection site. CONDITION AT DISCHARGE: Stable. The patient tolerated the procedure well, had no complications. COURTNEY MAJOR MD DR: MARCELO/roly JOB#: [id number] / [id number]
== END ==
LOC: PNCL 09:20
PROVIDERS: ATTEND Anesthesiology
DX: M79.18 Myalgia, other site (principal); M96.1 Postlaminectomy syndrome, not elsewhere classified; M51.16 Intervertebral disc disorders with radiculopathy, lumbar region; M48.061 Spinal stenosis, lumbar region without neurogenic claudication
CPT/HCPCS: 20552; J1030; J3490

== ENCOUNTER → 2018-12-01 | Outpatient (CLI) | payer OTHER ==
[2015-05-05 10:48] VITALS: BP 108/64
[~2018-12-01] MED LIST changes: -BUPIVACAINE MPF 0.25% 10 ML VIAL. ONE; -TIZA4TAB PO; +TIZA4TAB2 PO; -methylPREDNISolone ACETATE 40 MG/ML VIAL. ONE
--- NOTE | 2018-12-01 21:12 | PAIN ---
DATE OF SERVICE: 12/01/2018 PROGRESS NOTE FOR PAIN CLINIC DIAGNOSES: 1. Lumbar radiculopathy with lumbar degenerative disk disease, lumbar spinal stenosis and post-lumbar laminectomy syndrome. 2. Myofascial pain. HISTORY OF PRESENT ILLNESS: The patient is a 48-year-old female who returns for followup status post medication management with oxycodone and MS Contin. The patient recently had abdominal surgery with extensive hernia repair, also some procedures on the low back as well as liposuction and breast implant on the right revision. The patient has had significant pain since that time. We had supplied extra oxycodone 20 mg for postoperative pain and the patient reports this has been helping, has been decreasing the pain fairly significantly, by about 50% or better. The patient reports still some significant pain in the abdomen, although she is about 3 weeks out from surgery now. The patient reports the pain is a 10 on a scale of 10 at its worst in the past week, 9 on average, 8 at its least and is a 9 today, pressure, burning, stabbing, aching, sharp, dull, tight, shooting, radiating in the back, constant pain with activity. She is wearing an abdominal binder which she reports does help decrease the abdominal pain to some extent. The patient reports it awakens her from sleep about every 4 hours, but is getting better with time as well. The patient reports no new motor or sensory deficits, no new bowel or bladder incontinence and no side effects with the medication. PHYSICAL EXAMINATION: VITAL SIGNS: The patient's blood pressure is 123/84, pulse 99, respirations are 18, temperature 98.6 degrees Fahrenheit, height is 5 feet 9 inches and weight is 232 pounds. GENERAL: The patient is awake, alert, oriented, appropriate, very pleasant demeanor. HEENT: Shows normocephalic, atraumatic. Extraocular movements are intact and symmetrical. Oral cavity: Mucous membranes moist and pink. Dentition is intact. NECK: Shows anterior throat supple without palpable lymphadenopathy noted. Swallow reflex symmetrical. CHEST: Shows normal on inspection. Breath sounds clear to auscultation bilaterally. HEART: Shows S1, S2 clear. No murmurs auscultated. ABDOMEN: Soft, nontender and nondistended. No palpable organomegaly is noted. Well-healing surgical scars noted in the midline in the entire epigastric and hypogastric distribution throughout the abdomen, which is sore with mild palpation near the incision site itself as well as a transverse incision in the low abdominal region, which is more tender, but no erythema, no discharge, no signs of infection or excessive tenderness over the scar consistent with postoperative change at 3 weeks postop. Options were discussed with the patient. The patient's old chart was reviewed as her current medication regimen updated. Current review of systems updated today as well. We will refill the patient's oxycodone as well as MS Contin for a 2-month period. The patient has had appropriate K-TRACS reporting as well as appropriate urinalyses to date. I will also add 20 mg oxycodone 20 tablets for postoperative pain and she is still having some significant postoperative pain, and the patient was given instruction as well as side effects to be aware of with each of the medications and will follow up in approximately 2 months or sooner as necessary. COURTNEY MAJOR MD DR: MARCELO/roly JOB#: [id number] / [id number]
== END | disposition home or self-care (01) ==
LOC: PNCL 13:08
PROVIDERS: ATTEND Anesthesiology
DX: M51.16 Intervertebral disc disorders with radiculopathy, lumbar region (principal); M48.061 Spinal stenosis, lumbar region without neurogenic claudication; M96.1 Postlaminectomy syndrome, not elsewhere classified; M79.18 Myalgia, other site; Z79.891 Long term (current) use of opiate analgesic
CPT/HCPCS: G0463

== ENCOUNTER → 2019-01-26 | Outpatient (CLI) | payer OTHER ==
[2015-05-05 10:48] VITALS: BP 108/64
--- NOTE | 2019-01-26 13:07 | PAIN ---
DATE OF SERVICE: 01/26/2019 PROGRESS NOTE FOR PAIN CLINIC DIAGNOSES: 1. Myofascial pain. 2. Lumbar radiculopathy with degenerative disk disease, and spinal stenosis with post-laminectomy syndrome. HISTORY OF PRESENT ILLNESS: The patient is a 48-year-old female who returns for followup status post medication management with both MS Contin and oxycodone. The patient reports she is doing very well with this, also do excess 3 times daily. The patient reports she has been doing very well with this, has been on very stable regimen with about a 75% improvement overall without significant side effects. The patient reports no constipation, no dizziness, no drowsiness, no itching, no excessive sedation and function as well with the medications and again has been on this long-term with good tolerance and good effect. The patient reports the pain in the past week is 9 on a scale of 10 at its worst, 6 on average, 6 at its least and is 6 today. The patient reports it is aching, dull, tight, shooting in the low back into the left lower extremity greater than the right, but doing fairly well for the most part. The patient reports it is radiating to the leg occasionally, but only with extensive walking or standing. 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 The patient reports she is sleeping somewhat better, but only about 3-4 hours a night at the most, but not always awaken from pain. PHYSICAL EXAMINATION: VITAL SIGNS: The patient's blood pressure is 131/84, pulse 83, respirations 18, temperature 98.2 degrees Fahrenheit, height is 5 feet 10 inches, weight is 232 pounds. GENERAL: The patient is awake, alert, oriented, appropriate, very pleasant demeanor. HEENT: Head shows normocephalic, atraumatic. Extraocular movements are intact and symmetrical. Oral cavity: Mucous membranes moist and pink. Dentition is intact. NECK: Shows anterior throat supple without palpable lymphadenopathy noted. Swallow reflex symmetrical. CHEST: Shows normal on inspection. Breath sounds clear to auscultation bilaterally. HEART: Shows S1, S2 clear. No murmurs auscultated. ABDOMEN: Soft, nontender, nondistended. No palpable organomegaly is noted. No rebound or guarding demonstrated. BACK: Shows spine grossly in the midline. Well-healed surgical scars noted in the lumbar distribution. Lumbar paraspinous muscle shows symmetrical on inspection, on palpation shows some moderate tenderness diffusely, but only diffusely without significant radiation. EXTREMITIES: The patient's lower extremities show deep tendon reflexes at 1+ in the patellar and tendo calcaneus tendons. Motor exam is strong with 5/5 dorsiflexion, extension, quadriceps and hamstring flexion and symmetrical. Peripheral pulses are 1+ posterior tibia. No peripheral edema is noted bilaterally. Options were discussed with the patient. The patient's old chart was reviewed as her current medication regimen updated. Current review of systems updated today as well. We will refill the patient's medication for 3 months. The patient had appropriate K-TRACS reporting as well as appropriate urinalysis to date. The patient was given instruction as well as side effects to be aware of with the medications and we will follow up in approximately two months or sooner as necessary. COURTNEY MAJOR MD DR: MARCELO/roly JOB#: [id number] / [id number]
== END | disposition home or self-care (01) ==
LOC: PNCL 10:17
PROVIDERS: ATTEND Anesthesiology
DX: M51.16 Intervertebral disc disorders with radiculopathy, lumbar region (principal); M96.1 Postlaminectomy syndrome, not elsewhere classified; M48.061 Spinal stenosis, lumbar region without neurogenic claudication; M79.18 Myalgia, other site
CPT/HCPCS: G0463

== ENCOUNTER → 2019-03-24 | Outpatient (CLI) | payer OTHER ==
[2015-05-05 10:48] VITALS: BP 108/64
--- NOTE | 2019-03-24 13:14 | PAIN ---
DATE OF SERVICE: 03/24/2019 PROGRESS NOTE FOR PAIN CLINIC DIAGNOSES: 1. Myofascial pain. 2. Lumbar radiculopathy with lumbar degenerative disk disease, lumbar spinal stenosis, and post-lumbar laminectomy syndrome. HISTORY OF PRESENT ILLNESS: The patient is a 48-year-old female, who returns for followup status post medication management with both MS Contin and oxycodone. The patient is also using Voltaren gel and Movantik for constipation, which work well per her report. The patient reports no new motor or sensory deficits, no new changes, still significant pain in the low back, mainly in the bilateral lower extremities, worse on the left than the right, worse with walking, standing, changing positions, although fairly well controlled with the medication. The patient reports about 70%-80% improvement overall without significant side effects of constipation, again controlled with Movantik. The patient reports the pain as 9 on a scale of 10 and its worst over the past week, 7-8 on average, 5 at its least, and is a 5 today. The patient reports tingling, burning, and stabbing in the low back radiating to the lower extremity with aching pain as well, tight and shooting at times. The patient reports it is worse with walking, standing, and changing positions, better with sitting or lying down. It does awaken her from sleep, sometimes as frequently as every 2 hours. The patient reports no motor or sensory deficits, no new bowel or bladder incontinence. PHYSICAL EXAMINATION: VITAL SIGNS: The patient's blood pressure 161/98, pulse 87, respirations 16, temperature is 97.7 degree Fahrenheit, height is 5 feet 10 inches, and weight is 223 pounds. GENERAL: The patient is awake, alert, oriented, appropriate, very pleasant demeanor. HEENT: Shows normocephalic, atraumatic. Extraocular movements are intact and symmetrical. Oral cavity, mucous membranes are moist and pink. Dentition is intact. NECK: Shows anterior throat supple without palpable lymphadenopathy noted. Swallow reflex symmetrical. CHEST: Shows normal on inspection. Breath sounds clear to auscultation bilaterally. HEART: Shows S1, S2 clear. No murmurs auscultated. ABDOMEN: Soft, nontender, nondistended. No palpable organomegaly is noted. No rebound or guarding demonstrated. BACK: Shows spine grossly in the midline, normal appearing thoracic kyphosis, and minor flattening of lumbar lordotic curvature with well-healed surgical scar in the lumbar distribution. Lumbar paraspinous muscle shows symmetrical on inspection and on palpation. It shows some moderate tenderness diffusely bilaterally and diffusely without significant radiation. The patient does show good rotation of motion of lumbar spine without significant difficulty or pain reported. EXTREMITIES: Lower extremities show deep tendon reflexes 1+ in the patellar and tendo-calcaneus tendons. Motor exam is strong with 5/5 dorsiflexion, extension, equal. Peripheral pulses are 2+. No peripheral edema is noted. IMPRESSION AND PLAN: Options were discussed with the patient. The patient's old chart was reviewed as her current medication regimen updated. Current review of systems was updated today as well. We will refill the patient's medication, both the oxycodone and MS Contin, as well as Duexis and Voltaren gel and Movantik. The patient was given instruction as well as side effects to be aware of with each of the medications. The patient had appropriate K-TRACS reporting as well as appropriate urinalysis to date. We will refill this for 2-month period. The patient will return to the clinic in approximately 2 months or sooner as necessary. COURTNEY MAJOR MD DR: MARCELO/roly JOB#: [id number] / [id number]
== END | disposition home or self-care (01) ==
LOC: PNCL 08:18
PROVIDERS: ATTEND Anesthesiology
DX: M51.16 Intervertebral disc disorders with radiculopathy, lumbar region (principal); M48.061 Spinal stenosis, lumbar region without neurogenic claudication; M96.1 Postlaminectomy syndrome, not elsewhere classified; M54.5 Low back pain
CPT/HCPCS: G0463

== ENCOUNTER → 2019-05-19 | Outpatient (CLI) | payer OTHER ==
[2015-05-05 10:48] VITALS: BP 108/64
--- NOTE | 2019-05-19 23:23 | PAIN ---
DATE OF SERVICE: 05/19/2019 PROGRESS NOTE FOR PAIN CLINIC DIAGNOSES: 1. Myofascial pain. 2. Lumbar radiculopathy with lumbar degenerative disk disease, lumbar spinal stenosis and post-lumbar laminectomy syndrome. HISTORY OF PRESENT ILLNESS: The patient is a 48-year-old female who returns for followup status post medication management with both MS Contin and oxycodone. The patient reports she is doing very well with this. She does have a bit of still some side effect of constipation; however, she is taking Movantik for which she does very well and taking care of this issue. The patient reports otherwise she is doing fairly well, still some pain in the base of the neck, upper back, mid back, low back, especially in the low back on the low left side with some radicular pain in the posterior gluteus, posterior thigh. The patient reports it is a 9 on a scale of 10 at its worst over the past week, 7 on average, 4 at its least and is a 7 today. The patient reports no new motor or sensory deficits, no new bowel or bladder incontinence. The patient reports she has been under some significant mental stress at her place of employment recently and she is seeing her psychiatrist later today on a routine appointment. The patient reports no other new concerns. Reports the pain is burning, cramping, aching, sharp, tight, shooting in the low back, radiating to the left lower extremity with some tender and cramping, stabbing pain in the mid low back as well. PHYSICAL EXAMINATION: VITAL SIGNS: The patient's blood pressure is 144/97, pulse 81, respirations 16, temperature 98.0 degrees Fahrenheit, height is 5 feet 10 inches, weight is 229 pounds. GENERAL: The patient is awake, alert, oriented, appropriate, very pleasant demeanor. HEENT: Head shows normocephalic, atraumatic. Extraocular movements are intact and symmetrical. Oral cavity: Mucous membranes moist and pink. Dentition is intact. NECK: Shows anterior throat supple without palpable lymphadenopathy noted. Swallow reflex symmetrical. CHEST: Shows normal on inspection. Breath sounds are clear bilaterally. HEART: Shows S1, S2 clear. No murmurs auscultated. ABDOMEN: Soft, nontender, nondistended. No palpable organomegaly is noted. No rebound or guarding demonstrated. BACK: Shows spine grossly in the midline, slightly exaggerated thoracic kyphosis and minor flattening of lumbar lordotic curvature. Lumbar paraspinous muscle shows symmetrical on inspection and shows good rotational motion of the lumbar spine, both laterally. The patient has full rotational motion of the lumbar spine, both laterally as well as extension and flexion without significant increase in pain, but she does have an area of the low lumbar spine showing some moderate tenderness in the myofascial component of the paraspinous muscles in the mid and lower left lumbar paraspinous musculature compared to the right without specific trigger points, but firm and nontender with palpation. EXTREMITIES: The patient's lower extremities show deep tendon reflexes at 2+ patellar, 1+ tendo-calcaneus tendons. Motor exam is strong with approximately 4 on a scale of 5, but equal and symmetrical dorsiflexion, extension, quadriceps and hamstring flexion. Peripheral pulses are 1+ posterior tibia. No peripheral edema is noted. Options were discussed with the patient. The patient's old chart was reviewed as her current medication regimen updated. Current review of systems updated today as well. We will refill the patient's medication on 2-month period. She has had appropriate K-TRACS reporting as well as appropriate urinalysis today. The patient was given instruction as well as side effects to be aware of each of the medications and will follow up in approximately 60 days or sooner if necessary. COURTNEY MAJOR MD DR: MARCELO/roly JOB#: [id number] / [id number]
== END | disposition home or self-care (01) ==
LOC: PNCL 13:13
PROVIDERS: ATTEND Anesthesiology
DX: M51.16 Intervertebral disc disorders with radiculopathy, lumbar region (principal); M48.061 Spinal stenosis, lumbar region without neurogenic claudication; M96.1 Postlaminectomy syndrome, not elsewhere classified; M79.18 Myalgia, other site
CPT/HCPCS: G0463

== ENCOUNTER → 2019-07-14 | Outpatient (CLI) | payer OTHER ==
[2015-05-05 10:48] VITALS: BP 108/64
--- NOTE | 2019-07-15 00:41 | PAIN ---
DATE OF SERVICE: 07/14/2019 PROGRESS NOTE FOR PAIN CLINIC DIAGNOSES: 1. Myofascial pain. 2. Lumbar radiculopathy with lumbar degenerative disk disease, lumbar spinal stenosis and post-lumbar laminectomy syndrome. HISTORY OF PRESENT ILLNESS: The patient is a 48-year-old female who returns for followup status post medication management with both oxycodone and MS Contin. The patient is taking Movantik, which she reports worked fairly well for the constipation. The patient reports it is very well controlled. She is keeping herself hydrated. The patient has otherwise no specific side effects. The patient reports very good results with the pain medication about 70% improvement overall without significant side effects besides the constipation. The patient reports still some pain in the low back, bilateral lower extremities as it has been previously better over the last month or so where she has been having less strenuous physical activity. The patient reports her pain at its worst, is a 9 on a scale of 10, 7 on average, 5 at its least and is a 5 today. The patient reports it is tingling, burning in the low back, cramping and shooting, sometimes aching and sharp in the back as well as tight, radiating at times, constant and unbearable with activity, but with rest and getting off her feet is much better. The patient reports it generally does not awaken her from sleep at night. She reports no new motor or sensory deficits, no new bowel or bladder incontinence. Again, no side effects with medications besides constipation. PHYSICAL EXAMINATION: VITAL SIGNS: The patient's blood pressure 147/97, pulse 84, respirations 18, temperature 99.0 degrees Fahrenheit, weight is 227 pounds. GENERAL: The patient is awake, alert, oriented, appropriate, very pleasant demeanor. HEENT: Shows -normocephalic, atraumatic. Extraocular movements are intact and symmetrical. Oral cavity: Mucous membranes moist and pink. Dentition is intact. NECK: Shows anterior throat supple without palpable lymphadenopathy noted. Swallow reflex symmetrical. CHEST: Shows normal on inspection. Breath sounds clear bilaterally. HEART: Shows S1, S2 clear. ABDOMEN: Obese, soft, nontender, nondistended. BACK: Shows spine grossly in the midline. Slight exaggeration of thoracic kyphosis, some minor flattening of lumbar lordotic curvature with well-healed surgical scarring noted. Lumbar paraspinous muscle shows symmetrical on inspection, on palpation shows some diffuse tenderness throughout the upper, middle and lower distribution of paraspinous muscles without radiation. The patient does show good rotational motion as well as extension and flexion of lumbar spine without significant pain. EXTREMITIES: The patient's lower extremities show deep tendon reflexes 1+ in the patellar and tendo calcaneus tendons. Motor exam is strong with 5/5 dorsiflexion and extension. Peripheral pulses are 1+. No peripheral edema bilaterally. Options were discussed with the patient. The patient's old chart was reviewed as her current medication regimen updated. Current review of system is updated today as well and we will refill the patient's medication, oxycodone and MS Contin for 60 days and also, Movantik. The patient was given instruction as well as side effects to be aware of each of the medications. She has had appropriate K-TRACS reporting as well as appropriate urinalysis to date. We will make this a 2-month prescription refill. The patient will follow up in approximately 2 months or sooner if necessary. COURTNEY MAJOR MD DR: MARCELO/roly JOB#: [id number] / [id number]
== END | disposition home or self-care (01) ==
LOC: PNCL 13:29
PROVIDERS: ATTEND Anesthesiology
DX: M51.16 Intervertebral disc disorders with radiculopathy, lumbar region (principal); M48.061 Spinal stenosis, lumbar region without neurogenic claudication; M96.1 Postlaminectomy syndrome, not elsewhere classified; M79.18 Myalgia, other site
CPT/HCPCS: G0463

== ENCOUNTER → 2019-09-08 | Outpatient (CLI) | payer OTHER ==
[2015-05-05 10:48] VITALS: BP 108/64
[~2019-09-08] MED LIST changes: +CARI1.5C PO; +DICL100G54 TP; +MORP-16 PO
--- NOTE | 2019-09-08 13:22 | PAIN ---
DATE OF SERVICE: 09/08/2019 PROGRESS NOTE FOR PAIN CLINIC DIAGNOSES: 1. Myofascial pain. 2. Lumbar radiculopathy with lumbar degenerative disk disease, lumbar spinal stenosis and lumbar post-laminectomy syndrome. HISTORY OF PRESENT ILLNESS: The patient is a 49-year-old female, who returns for followup status post previous medication management with both oxycodone and MS Contin. The patient is also taking Movantik for constipation, which she reports works very well. Also Voltaren gel for joint pain. The patient reports this is effective as well. The patient reports she has been on a very stable regimen and is very pleased with her degree of improvement with the pain at about 70-75% overall. The patient reports still some pain in the base of the neck and shoulders as well as the mid back, low back and in lower extremities occasionally, worse with activity. The patient has been working from home recently and reports this has been very good for her activity levels and she is able to stretch and take breaks when she needs to. The patient reports her pain is a 9 on a scale of 10 at its worst over the past week, 8 on average and 4 at its least and is a 4 today. The patient reports it is aching, sharp, tight, shooting, cramping, stabbing, tingling at times, burning, radiating, becoming constant, severe with increased activity, but she has been decreasing this fairly significantly. The patient reports no new motor or sensory deficits, no new bowel or bladder incontinence or other complaints. PHYSICAL EXAMINATION: VITAL SIGNS: The patient's blood pressure is 149/110, pulse 84, respirations 20, temperature is 98.5 degrees Fahrenheit, height is 5 feet 10 inches and weight is 231 pounds. GENERAL: The patient is awake, alert, oriented, appropriate, very pleasant demeanor. HEENT: Shows normocephalic, atraumatic. Extraocular movements are intact and symmetrical. Oral cavity shows mucous membranes moist and pink. Dentition is intact. NECK: Shows anterior throat supple without palpable lymphadenopathy noted. Swallow reflex symmetrical. CHEST: Shows normal on inspection. Breath sounds clear to auscultation bilaterally. HEART: Shows S1, S2 clear. No murmurs auscultated. ABDOMEN: Soft, nontender, nondistended. No palpable organomegaly is noted. No rebound or guarding demonstrated. BACK: Shows midline spine without significant deviation with normal appearing thoracic kyphotic curvature and some minor flattening of lumbar lordotic curvature with well-healed surgical scar noted. Lumbar paraspinous muscle shows symmetrical on inspection, on palpation shows some mild tenderness throughout the upper, middle and lower distribution of paraspinous muscles bilaterally with good rotational motion of lumbar spine, both laterally as well as extension and flexion without significant increase in pain. EXTREMITIES: Lower extremities show deep tendon reflexes at 1+ patellar and tendo calcaneus tendons. Motor exam is approximately 4 on a scale of 5, but symmetrical with dorsiflexion, extension, quadriceps and hamstring flexion. Peripheral pulses are 1+ posterior tibia. No peripheral edema bilaterally. Options were discussed with the patient. The patient's old chart was reviewed as her current medication regimen updated. Current review of systems updated today as well. We will proceed with a refill for patient's medication, both MS Contin as well as oxycodone for breakthrough and Movantik and Voltaren gel. The patient was given instruction as well as side effects to be aware of each of the medications. The patient has had appropriate K-TRACS reporting as well as appropriate urinalysis to date. We will make this a 2-month refill with instructions, side effects to be aware of once again discussed. The patient will return to the clinic in approximately 2 months or sooner as necessary. COURTNEY MAJRO MD DR: MARCELO/roly JOB#: [id number] / [id number]
== END | disposition home or self-care (01) ==
LOC: PNCL 11:54
PROVIDERS: ATTEND Anesthesiology
DX: M51.16 Intervertebral disc disorders with radiculopathy, lumbar region (principal); M48.061 Spinal stenosis, lumbar region without neurogenic claudication; M96.1 Postlaminectomy syndrome, not elsewhere classified; M79.18 Myalgia, other site
CPT/HCPCS: G0463

== ENCOUNTER → 2019-11-03 | Outpatient (CLI) | payer OTHER ==
[2015-05-05 10:48] VITALS: BP 108/64
[~2019-11-03] MED LIST changes: +ERGO500027 PO
--- NOTE | 2019-11-03 13:23 | PAIN ---
DATE OF SERVICE: 11/03/2019 PROGRESS NOTE FOR PAIN CLINIC DIAGNOSES: 1. Myofascial pain. 2. Lumbar radiculopathy with lumbar degenerative disk disease, lumbar spinal stenosis and lumbar post-laminectomy syndrome. HISTORY OF PRESENT ILLNESS: The patient is a 49-year-old female who returns for followup status post medication management with both MS Contin and oxycodone for breakthrough. The patient reports she did very well with this, with a very stable regimen, actually has felt better over the past month or so. She is still doing some working out and exercises on her own and has been going to the gym occasionally. The patient reports she feels that she is overall aching with a deep ache and she also discovered that she was vitamin D deficient and she has been replacing this with both dietary and oral supplements as well. The patient reports still significant pain in the base of the neck, shoulders, upper back, mid back, low back and into the right lower extremity, greater than left. She is planning to have surgery on her left hand next week, the thumb and first metacarpal, with a plastic surgeon for reconstruction of this area where she had significant pain in this area for years. The patient reports her pain all over as an 8 on a scale of 10 at its worse in the past week, 6 on average, 4 at its least and is a 6 today. The patient reports it is aching, can be sharp and dull, alternating tight and shooting in the base of neck and shoulders, more tight and cramping in the low back with some radiating pain in the right lower extremity with increased activity, but most days does fairly well with overall about a 75-80% improvement with the medications and without specific side effects. The patient does have some constipation. She is treating with increased hydration and [id number] laxative when needed, but it is very rare. The patient reports it awakens her from sleep about every 4-5 hours. Pain is mainly in the low back, but she is able to sleep generally. The patient is taking ibuprofen as well, which does help. PHYSICAL EXAMINATION: VITAL SIGNS: The patient's blood pressure 137/93, pulse 88, respirations 18, temperature 98.6 degrees Fahrenheit, height 5 feet 10 inches, weighs 233 pounds. GENERAL: The patient is awake, alert and oriented, appropriate, very pleasant demeanor. HEENT: Shows normocephalic, atraumatic. Extraocular movements are intact and symmetrical. Oral cavity: Mucous membranes moist and pink. Dentition is intact. NECK: Shows anterior throat supple without palpable lymphadenopathy noted. Swallow reflex symmetrical. Neck shows full rotational motion of cervical spine, both laterally as well as extension and flexion without significant pain reported. CHEST: Shows normal on inspection. Breath sounds are clear to auscultation bilaterally. No rales, rhonchi or wheezes auscultated. HEART: Shows S1, S2 clear. No murmurs auscultated. ABDOMEN: Obese but soft, nontender, nondistended. BACK: Shows spine grossly in the midline. Normal appearing thoracic kyphosis and some minor flattening of lumbar lordotic curvature with well-healed surgical scar noted. Lumbar paraspinous muscle shows symmetrical on inspection, on palpation shows some moderate tenderness diffusely bilaterally throughout the upper, middle and lower distribution of the paraspinous muscles, but without radiation or trigger points. The patient has good rotational motion both laterally as well as extension and flexion without significant increase in pain. EXTREMITIES: Show lower extremity deep tendon reflexes 2+ in the patellar and 1+ tendo-calcaneus tendons. Motor exam is strong with 5/5 dorsiflexion, extension, quadriceps and hamstring flexion are symmetrical. Peripheral pulses are 1+. No peripheral edema is noted in the lower extremities. Options were discussed with the patient. The patient's old chart was reviewed as her current medication regimen updated. Current review of systems updated today as well. We will proceed with refilling the patient's MS Contin as well as oxycodone. The patient is also having surgery on her left hand next week. We will have oxycodone of 15 mg 20 tablets in addition for postoperative pain to satisfy her contractual needs for the postoperative pain through our clinic. The patient was given instruction as well as side effects to be aware of each of the medications. She has had appropriate K-TRACS reporting as well as appropriate urinalysis to date. We will have urinalysis taken today as well, as routine screening. The patient will return to the clinic in approximately 2 months or sooner if necessary. COURTNEY MAJOR MD DR: MARCELO/roly JOB#: [id number] / [id number]
== END | disposition home or self-care (01) ==
LOC: PNCL 11:35
PROVIDERS: ATTEND Anesthesiology
DX: Z09 Encounter for follow-up examination after completed treatment for conditions other than malignant neoplasm (principal); M51.16 Intervertebral disc disorders with radiculopathy, lumbar region; M48.061 Spinal stenosis, lumbar region without neurogenic claudication; M96.1 Postlaminectomy syndrome, not elsewhere classified; Z88.6 Allergy status to analgesic agent
CPT/HCPCS: G0463

== ENCOUNTER → 2020-01-01 | Outpatient (CLI) | payer OTHER ==
[2015-05-05 10:48] VITALS: BP 108/64
[~2020-01-01] MED LIST changes: +BUPIVACAINE MPF 0.25% 10 ML VIAL. ONE; +methylPREDNISolone ACETATE 40 MG/ML VIAL. ONE
--- NOTE | 2020-01-01 12:11 | PDOC ---
Progress Note - Pain Clinic Date of Service: DOS: DATE: 01/01/20 TIME: 12:03 Diagnosis: Dx: Myofascial pain Lumbar radiculopathy with lumbar degenerative disc disease lumbar spinal stenosis and post lumbar laminectomy syndrome History or Present Illness: HPI: 49-year-old female returns follow-up status post [place] management with oxycodone and MS Contin patient reports he is doing fairly well with this and is been on very stable regimen with about a 70 to 75% improvement overall patient reports her main complaint however is pain in the base of the neck on the right greater than left but present bilaterally radiating the posterior upper shoulder into the lateral shoulder as well as the upper mid back on the right greater than left patient reports is been going on for about 2 weeks now the pain is getting much worse over the past week patient rates as a 9 on scale 10 is worse over the past week 8 on average 7 at its least. Patient reports is aching sharp tight shooting burning cramping stabbing in the base the neck and shoulders radiating pain more constant and severe rating the upper back. Patient also has low back pain radiates bilateral lower extremities but again this is fairly well controlled with her medication regimen and without specific side effects occasional constipation which is generally decreased with hydration. Patient reports no new motor or sensory deficits or other complaints. Physical Exam: VS: Blood pressure 140/100 pulse 81 respirations are 18 temperature 90.5 F weight is 237 pounds PE: PHYSICAL EXAMINATION: GENERAL: The patient is awake, alert, oriented, appropriate, very pleasant demeanor HEENT: Shows normocephalic, atraumatic. Extraocular movements are intact and symmetrical. Oral cavity: Mucous membranes moist and pink. NECK: Shows anterior throat supple without palpable lymphadenopathy noted. Swallow reflex symmetrical. CHEST: Shows normal on inspection. Breath sounds are clear bilaterally, no rales rhonchi or wheezes auscultated. HEART: Shows S1, S2 clear. No murmurs auscultated. ABDOMEN: Soft, nontender, nondistended, obese. No palpable organomegaly is noted. No rebound or guarding demonstrated. BACK: Shows spine grossly in the midline. Normal-appearing cervical lordotic curvature. Patient cervical paraspinous muscle shows symmetrical but with palpation shows a very firm ropelike musculature in the bilateral inferior to middle aspect of the cervical paraspinous muscles very firm consistent with trigger point areas of musculature with some minor radiation on the right side with palpation to the right trapezius and the right lateral shoulder. His trapezius muscular shows significant tenderness and very firm ropelike musculature on the right compared to the left with multiple areas of trigger point area musculature very tender very firm but without specific radiation this is true into the superior aspect of the rhomboid muscle as well as the superior and medial aspect of the thoracic paraspinous musculature bilaterally. Again with trigger point areas but without specific radiation. There is slightly increased thoracic kyphosis, some minor flattening of the lumbar lordotic curvature with well-healed surgical scarring noted. Lumbar paraspinous muscles show symmetrical on inspection, on palpation shows some moderate tenderness diffusely throughout the upper, middle and lower distribution of the paraspinous muscles bilaterally and also into the lower thoracic paraspinous musculature, firm and tender, without radiation of pain. The patient has good rotational motion of the lumbar spine, both laterally as well as extension and flexion without significant difficulty. No tenderness over the spinous processes, sacrum or sacroiliac regions. EXTREMITIES: Lower extremities show deep tendon reflexes 1+ in the patellar and tendo calcaneus tendons. Motor exam is 5 on a scale of 5 with right dorsiflexion, extension, quadriceps and hamstring flexion and 5/5 on the left. Peripheral pulses are 1+ posterior tibial. No peripheral edema is noted bilaterally. Lower extremities are warm and dry to touch, equal in color and appeance. SKIN: Shows warm and dry, good turgor. No edema. No sores, rashes or bruising throughout. Procedure: Procedure: Options were discussed with the patient. Patient will chart reviews her current medication regimen updated current review of systems updated today as well. We will proceed with trigger point injections of the identified musculature. Again discussed including but not limited to bleeding infection possibility of intravascular injection sequelae spread local acetic numbness pneumothorax side effects of steroid medication and portal scarring pain control. Patient understands wished to proceed patient return to clinic in approximately 8 weeks for follow-up was counseled as to return appointment activity level and side effects be aware of. Under sterile prep patient's in the sitting position trigger point areas of musculature identified in the bilateral cervical paraspinous musculature the b ilateral trapezius muscle during the right rhomboid musculature and right thoracic paraspinous musculature each was injected with 1 cc of 0.25 bupivacaine, for a total of 10 cc , and total of 40 mg Depo-Medrol, after negative aspiration at each site. Patient tolerated procedure well had no complications. Medication Injected: Med Injected: 10 cc 0.25% bupivacaine, 40 mg Depo-Medrol Condition at Discharge: Condition at Discharge: Condition at discharge stable patient tolerated the procedure well had no complications COURTNEY MAJOR MD Jan 01, 2020 12:11
== END | disposition home or self-care (01) ==
LOC: PNCL 10:59
PROVIDERS: ATTEND Anesthesiology
DX: M51.16 Intervertebral disc disorders with radiculopathy, lumbar region (principal); M48.061 Spinal stenosis, lumbar region without neurogenic claudication; M79.18 Myalgia, other site; Z79.899 Other long term (current) drug therapy
CPT/HCPCS: 20553; J1030; J3490

== ENCOUNTER → 2020-02-26 | Outpatient (CLI) | payer OTHER ==
[2015-05-05 10:48] VITALS: BP 108/64
[~2020-02-26] MED LIST changes: -BUPIVACAINE MPF 0.25% 10 ML VIAL. ONE; -NALO25TA2 PO; +NALO25TA4 PO; -methylPREDNISolone ACETATE 40 MG/ML VIAL. ONE
--- NOTE | 2020-02-26 11:59 | PDOC ---
Progress Note - Pain Clinic Date of Service: DOS: DATE: 02/26/20 TIME: 11:55 Diagnosis: Dx: Myofascial pain Lumbar radiculopathy with lumbar degenerative disease lumbar spinal stenosis and lumbar postlaminectomy syndrome History or Present Illness: HPI: 49-year-old female returns follow-up status post medication management with MS Contin and oxycodone. Patient reports he is doing fairly well with this also taking metaxalone and naproxen. Patient reports she is doing fairly well actually feeling better this past month or 2 then recently she has been increasing some exercise and stretching and strengthening that she is doing daily and other exercises almost daily patient reports still significant pain base the neck back upper back mid back low back and the bilateral lower extremities aching sharp dull in the back tightness shooting sometimes in the legs worse with activity tingling and burning across the back and in the mid back as well has some radiating pain into the shoulders. Patient reports no new motor or sensory deficits reports her overall improvement about 65 to 70% with the medications alone and without significant side effects. Patient is maintaining her hydration has had no constipation no dizziness drowsiness itching or nausea. Patient reports some days she is doing better than others depends to be activity dependent and mostly sitting or standing for prolonged periods increases the pain but walking exercising seems to be helping in decreasing the pain to a moderate extent as noted. Patient reports no new motor or sensory deficits no new bowel or bladder incontinence or other complaints. Physical Exam: VS: Blood pressure is 152/106 pulse 83 respirations are 18 temperature 98.7 F weight is 235 pounds PE: PHYSICAL EXAMINATION: GENERAL: The patient is awake, alert, oriented, appropriate, very pleasant demeanor HEENT: Shows normocephalic, atraumatic. Extraocular movements are intact and symmetrical. Oral cavity: Mucous membranes moist and pink. Dentition is intact. NECK: Shows anterior throat supple without palpable lymphadenopathy noted. Swallow reflex symmetrical. CHEST: Shows normal on inspection. Breath sounds are clear bilaterally. HEART: Shows S1, S2 clear. No murmurs auscultated. ABDOMEN: Soft, nontender, nondistended, obese. No palpable organomegaly is noted. No rebound or guarding demonstrated. BACK: Shows spine grossly in the midline. Normal-appearing cervical lordotic curvature. There is slightly increased thoracic kyphosis, some minor flattening of the lumbar lordotic curvature. Lumbar paraspinous muscles show symmetrical on inspection, on palpation shows some moderate tenderness diffusely throughout the upper, middle and lower distribution of the paraspinous muscles without specific trigger points, without radiation of pain. The patient has good rotational motion of the lumbar spine, both laterally as well as extension and flexion without significant difficulty. No tenderness over the spinous processes, sacrum or sacroiliac regions. EXTREMITIES: Lower extremities show deep tendon reflexes 1+ in the patellar and tendo calcaneus tendons. Motor exam is 5 on a scale of 5 with right dorsiflexion, extension, quadriceps and hamstring flexion and 5/5 on the left. Peripheral pulses are 1+ posterior tibial. No peripheral edema is noted bilaterally. Lower extremities are warm and dry to touch, equal in color and appearance. SKIN: Shows warm and dry, good turgor. No edema. No sores, rashes or bruising throughout. Procedure: Procedure: Options were discussed with the patient. Patient chart was reviewed as her current medication regimen updated current review of systems updated today as well. We will refill patient's medication both MS Contin and oxycodone for 2- month.. Patient had appropriate K tracts report as well as appropriate urinalyses to date and we will make this a 2-month refill patient was given instructions will side effects beware of each of the medications and will follow-up in approximate 2 months or sooner if necessary. Patient was encouraged to maintain her exercise regimen stretching strengthening as well as diet recommendations and will follow-up as scheduled. Medication Injected: Med Injected: None Condition at Discharge: Condition at Discharge: Condition at discharge is stable. COURTNEY MAJOR MD Feb 26, 2020 11:59
== END ==
LOC: PNCL 11:08
PROVIDERS: ATTEND Anesthesiology
DX: M51.16 Intervertebral disc disorders with radiculopathy, lumbar region (principal); M48.061 Spinal stenosis, lumbar region without neurogenic claudication; M46.1 Sacroiliitis, not elsewhere classified; M79.18 Myalgia, other site; Z79.899 Other long term (current) drug therapy
CPT/HCPCS: 99212; G0463

== ENCOUNTER → 2020-04-25 | Outpatient (CLI) | payer OTHER ==
[2015-05-05 10:48] VITALS: BP 108/64
--- NOTE | 2020-04-25 13:59 | PDOC ---
Progress Note - Pain Clinic Date of Service: DOS: DATE: 04/25/20 TIME: 13:56 Diagnosis: Dx: Lumbar radiculopathy with lumbar degenerative disease lumbar spinal stenosis and post lumbar laminectomy syndrome Myofascial pain History or Present Illness: HPI: 49-year-old female returns follow-up status post medication management with MS Contin and oxycodone also metaxalone and ibuprofen. Patient ports he is doing very well is been a very stable regimen with about a 75% improvement and has been more active recently and she is feeling better with as well. Patient reports no side effects with the medication except for occasional constipation which is generally decreased with [id number] laxatives and hydration. Patient reports still better with laying down or sitting worse with standing walking changing positions patient reports the pain is in the low back into the bilateral lower extremities to some extent but mostly in the back itself patient rates the pain as a 9 on scale 10 is worse over the past week 6 on average 5-6 i s a 6 today. Patient scribes as aching sharp dull tight alternating also some tingling and burning in the back and legs as well the cramping sensation as well that can be radiating. Patient reports no motor or sensory deficits no bowel or bladder incontinence. Physical Exam: VS: Blood pressure is 122/84 pulse 75 respirations 18, temperature is 98.2 F height is 5 feet 10 inches weight 237 pounds PE: PHYSICAL EXAMINATION: GENERAL: The patient is awake, alert, oriented, appropriate, very pleasant demeanor HEENT: Shows normocephalic, atraumatic. Extraocular movements are intact and symmetrical. Oral cavity: Mucous membranes moist and pink. Dentition is intact. NECK: Shows anterior throat supple without palpable lymphadenopathy noted. Swallow reflex symmetrical. CHEST: Shows normal on inspection. Breath sounds are clear bilaterally, no rales rhonchi or wheezes. HEART: Shows S1, S2 clear. No murmurs auscultated. ABDOMEN: Soft, nontender, nondistended, obese. No palpable organomegaly is noted. No rebound or guarding demonstrated. BACK: Shows spine grossly in the midline. Normal-appearing cervical lordotic curvature. There is slightly increased thoracic kyphosis, some minor flattening of the lumbar lordotic curvature. Well-healed surgical scars noted. Lumbar paraspinous muscles show symmetrical on inspection, on palpation shows some moderate tenderness diffusely throughout the upper, middle and lower distribution of the paraspinous muscles without specific trigger points, without radiation of pain. The patient has good rotational motion of the lumbar spine, both laterally as well as extension and flexion without significant difficulty. No tenderness over the spinous processes, sacrum or sacroiliac regions. EXTREMITIES: Lower extremities show deep tendon reflexes 1 in the patellar and tendo calcaneus tendons. Motor exam is 5 on a scale of 5 with right dorsiflexion, extension, quadriceps and hamstring flexion and 5/5 on the left. Peripheral pulses are 1+ posterior tibial. No peripheral edema is noted bilaterally. Lower extremities are warm and dry to touch, equal in color and appearance. SKIN: Shows warm and dry, good turgor. No edema. No sores, rashes or bruising throughout. Procedure: Procedure: Options were discussed. Patient's old chart was reviewed as her current medication regimen updated current review of systems updated today as well. We will refill patient's medication for 2-month. She has had appropriate K tracks and 20 as well as appropriate urinalyses to date. Patient was given instructions well side effects aware of each of the medications. Patient to follow-up in approximate 2 months or sooner as necessary. Medication Injected: Med Injected: None Condition at Discharge: Condition at Discharge: Condition at discharge is stable. COURTNEY MAJOR MD Apr 25, 2020 13:59
== END | disposition home or self-care (01) ==
LOC: PNCL 13:16
PROVIDERS: ATTEND Anesthesiology
DX: M51.16 Intervertebral disc disorders with radiculopathy, lumbar region (principal); M48.061 Spinal stenosis, lumbar region without neurogenic claudication; M96.1 Postlaminectomy syndrome, not elsewhere classified; M79.18 Myalgia, other site; Z98.890 Other specified postprocedural states
CPT/HCPCS: 99212; G0463

== ENCOUNTER → 2020-06-23 | Outpatient (CLI) | payer OTHER ==
[2015-05-05 10:48] VITALS: BP 108/64
[~2020-06-23] MED LIST changes: -ERGO500027 PO; +ERGO500089 PO
--- NOTE | 2020-06-23 11:59 | PDOC ---
Progress Note - Pain Clinic Date of Service: DOS: DATE: 06/23/20 TIME: 11:55 Diagnosis: Dx: Lumbar radiculopathy with lumbar degenerative disc disease lumbar spinal stenosis and lumbar postlaminectomy syndrome Myofascial pain History or Present Illness: HPI: 49-year-old female returns follow-up status post medication management with MS Contin and oxycodone. Patient reports doing very well with this has been on a very stable regimen with about 70% improvement overall with the medications and without specific side effects. Patient reports still significant pain in the base the neck shoulders upper back mid back low back specially in the low back and left lower extremity patient reports is an 8 on scale 10 is worse over the past week 6 on average 4 to 5 days least is a 6 today. Patient reports its aching everywhere sharp and dull tight in the back and lower extremity tingling and burning in the shoulder and arms as well as a stabbing pain in the back on and off with weather changes and radiating constant can be severe unbearable and recently with some rainy weather has an exacerbation of the pain. Patient reports no new motor or sensory deficits however no new bowel or bladder incontinence or other complaints. Physical Exam: VS: Blood pressure is 145/101 pulse 91 respirations 18 temperature 98.1 F height 5 feet 9 inches weight 240 pounds PE: PHYSICAL EXAMINATION: GENERAL: The patient is awake, alert, oriented, appropriate, very pleasant demeanor HEENT: Shows normocephalic, atraumatic. Extraocular movements are intact and symmetrical. Oral cavity: Mucous membranes moist and pink. Dentition is intact. NECK: Shows anterior throat supple without palpable lymphadenopathy noted. Swallow reflex symmetrical. CHEST: Shows normal on inspection. Breath sounds are clear bilaterally, no rales or rhonchi. HEART: Shows S1, S2 clear. No murmurs auscultated. ABDOMEN: Soft, nontender, nondistended, obese. No palpable organomegaly is noted. BACK: Shows spine grossly in the midline. Normal-appearing cervical lordotic curvature. There is slightly increased thoracic kyphosis, some flattening of the lumbar lordotic curvature with well-healed midline surgical scarring. Lumbar paraspinous muscles show symmetrical on inspection, on palpation shows some moderate tenderness diffusely throughout the upper, middle and lower distribution of the paraspinous muscles without specific trigger points, without radiation of pain. The patient has good rotational motion of the lumbar spine, both laterally as well as extension and flexion without significant difficulty. EXTREMITIES: Lower extremities show deep tendon reflexes 1+ in the patellar and tendo calcaneus tendons. Motor exam is 5 on a scale of 5 with right dorsiflexion, extension, quadriceps and hamstring flexion and 5/5 on the left. Peripheral pulses are 1+ posterior tibial. No peripheral edema is noted bilaterally. Lower extremities are warm and dry to touch, equal in color and appearance. SKIN: Shows warm and dry, good turgor. No edema. No sores, rashes or bruising throughout. Procedure: Procedure: Options discussed with the patient. Patient will chart reviews her current medication regimen updated current review of systems updated today as well. We will refill patient's MS Contin as well as oxycodone also metaxalone and Duexis. Patient given instructions well side effects beware of each of the medications patient has had appropriate K tracks report as well as appropriate urinalyses to date and we will make this a 2-month refill. Patient will have urinalysis done today as part of routine screening also renew patient's narcotic contract. Patient will return to clinic in approximately 2 months or sooner if necessary. Medication Injected: Med Injected: None Condition at Discharge: Condition at Discharge: Condition at discharge is stable. COURTNEY MAJOR MD Jun 23, 2020 11:59
== END | disposition home or self-care (01) ==
LOC: PNCL 10:56
PROVIDERS: ATTEND Anesthesiology
DX: M51.16 Intervertebral disc disorders with radiculopathy, lumbar region (principal); M48.061 Spinal stenosis, lumbar region without neurogenic claudication; M96.1 Postlaminectomy syndrome, not elsewhere classified; M79.10 Myalgia, unspecified site; E11.9 Type 2 diabetes mellitus without complications; F41.9 Anxiety disorder, unspecified; F32.9 Major depressive disorder, single episode, unspecified; Z90.710 Acquired absence of both cervix and uterus; Z98.890 Other specified postprocedural states; Z79.899 Other long term (current) drug therapy; Z79.84 Long term (current) use of oral hypoglycemic drugs; Z83.3 Family history of diabetes mellitus
CPT/HCPCS: 99212; G0463

== ENCOUNTER → 2020-08-18 | Outpatient (CLI) | payer OTHER ==
[2015-05-05 10:48] VITALS: BP 108/64
[~2020-08-18] MED LIST changes: +ERGO500027 PO; -ERGO500089 PO
--- NOTE | 2020-08-18 12:24 | PDOC ---
Progress Note - Pain Clinic Date of Service: DOS: DATE: 08/18/20 TIME: 12:21 Diagnosis: Dx: Myofascial pain Lumbar radiculopathy with lumbar degenerative disc disease and lumbar stenosis with post lumbar laminectomy syndrome History or Present Illness: HPI: 49-year-old female returns in follow-up status post medication management with both oxycodone and MS Contin. Patient reports he is doing well with his also taking metaxalone for muscle laxation and Duexis for anti-inflammatory. Patient reports he is about 35% improved after her last visit and overall rates the medications at decreasing the pain by about 80%. Patient reports she has been feeling much more energetic has had increased activity levels and is feeling generally improved. Patient reports that she is been increasing her activity and exercise more consistently doing exercise and stretching. Patient rates her pain as an 8 on scale 10 is worse over the past week 5 on average 3 at its least and is a 5 today patient describes pain in the base the neck shoulders upper back mid back low back and bilateral lower extremities with pain worse on the left than the right as aching and sharp sometimes tight and dull in the back and shoulders tingling and burning in the left leg cramping sometimes in the back and shoulders can radiate and can be constant with activity. Patient reports no new motor or sensory deficits no new bowel or bladder incontinence again no side effects with the medications. Physical Exam: VS: Blood pressure is 141/94 pulse 90 respirations 18 temperature is 98.1 F height is 5 feet 9 inches weight is 242 pounds PE: PHYSICAL EXAMINATION: GENERAL: The patient is awake, alert, oriented, appropriate, very pleasant demeanor HEENT: Shows normocephalic, atraumatic. Extraocular movements are intact and symmetrical. Oral cavity: Mucous membranes moist and pink. Dentition is inta ct. NECK: Shows anterior throat supple without palpable lymphadenopathy noted. Swallow reflex symmetrical. CHEST: Shows normal on inspection. Breath sounds are clear bilaterally, no rales or rhonchi auscultated. HEART: Shows S1, S2 clear. No murmurs auscultated. ABDOMEN: Soft, nontender, nondistended, obese. No palpable organomegaly is noted. No rebound or guarding demonstrated. BACK: Shows spine grossly in the midline. Normal-appearing cervical lordotic curvature. There is slightly increased thoracic kyphosis, some minor flattening of the lumbar lordotic curvature. Well-healed surgical scar noted in the midline in the lumbar distribution. Lumbar paraspinous muscles show symmetrical on inspection, on palpation shows some moderate tenderness diffusely throughout the upper, middle and lower distribution of the paraspinous muscles without specific trigger points, without radiation of pain. The patient has good rotational motion of the lumbar spine, both laterally as well as extension and flexion without significant difficulty. EXTREMITIES: Lower extremities show deep tendon reflexes 1+ in the patellar and tendo calcaneus tendons. Motor exam is 5 on a scale of 5 with right dorsiflexion, extension, quadriceps and hamstring flexion and 5/5 on the left. Peripheral pulses are 1+ posterior tibial. No peripheral edema is noted bilaterally. Lower extremities are warm and dry. SKIN: Shows warm and dry, good turgor. No edema. No sores, rashes or bruising throughout. Procedure: Procedure: Options discussed with the patient. Patient chart was reviewed as her current medication regimen updated current review of systems updated today as well. We will refill patient's medication for 2-month. As she has had appropriate K tracts reporting as well as appropriate urinalyses to date. She was given instructions and side effects beware of each of the medications and will follow- up as scheduled, or sooner as necessary. Medication Injected: Med Injected: None Condition at Discharge: Condition at Discharge: Condition at discharge is stable. COURTNEY MAJOR MD Aug 18, 2020 12:24
== END | disposition home or self-care (01) ==
LOC: PNCL 11:50
PROVIDERS: ATTEND Anesthesiology
DX: M51.16 Intervertebral disc disorders with radiculopathy, lumbar region (principal); M48.061 Spinal stenosis, lumbar region without neurogenic claudication; M79.18 Myalgia, other site; M96.1 Postlaminectomy syndrome, not elsewhere classified; E11.9 Type 2 diabetes mellitus without complications; F32.9 Major depressive disorder, single episode, unspecified; F41.9 Anxiety disorder, unspecified; E66.9 Obesity, unspecified; Z90.49 Acquired absence of other specified parts of digestive tract; Z90.710 Acquired absence of both cervix and uterus; Z98.890 Other specified postprocedural states; Z79.899 Other long term (current) drug therapy; Z79.84 Long term (current) use of oral hypoglycemic drugs
CPT/HCPCS: 99212; G0463

== ENCOUNTER → 2020-10-13 | Outpatient (CLI) | payer OTHER ==
[2015-05-05 10:48] VITALS: BP 108/64
[~2020-10-13] MED LIST changes: -ERGO500027 PO; +ERGO500089 PO
--- NOTE | 2020-10-13 12:27 | PDOC ---
Progress Note - Pain Clinic Date of Service: DOS: DATE: 10/13/20 TIME: 12:22 Diagnosis: Dx: Lumbar radiculopathy with lumbar degenerative disease lumbar spinal stenosis and lumbar postlaminectomy syndrome Myofascial pain History or Present Illness: HPI: 50-year-old female returns to follow-up status post medication management with both MS Contin and oxycodone for breakthrough. Patient reports she has been doing very well with this and is trying to reduce the medications recently as she has entered a new workout routine with a physical therapy program and on some days is reduced pain by about 50%. Patient reports still some significant pain in the low back left hip mid back upper back and neck and shoulders but overall generally improved. Patient reports medications are doing well with about a 75 to 80% improvement without side effects. Patient reports her pain is 8 on scale 10 is worse over the past week 5 on average 3 at its least is a 5 today patient reports burning and cramping in the base the neck and shoulders aching and dull in the low back sometimes sharp in the left hip can be radiating constant can be unbearable and severe but not as frequently as prior to starting her new physical therapy program. Patient reports she still feels better with sitting or laying down does not generally awaken her from sleep at night. Patient reports that her physical therapy program is allowing her to obtain some conditioning where she feels that she has more energy is sleeping better at night and generally feeling better and enthusiastic. Physical Exam: VS: Blood pressure is 145/90 pulse 79 respirations 18 temperature 98.8 F height 5 feet 10 inches weight 241 pounds PE: PHYSICAL EXAMINATION: GENERAL: The patient is awake, alert, oriented, appropriate, very pleasant in demeanor. HEENT: Shows normocephalic, atraumatic. Extraocular movements are intact and symmetrical. Oral cavity: Mucous membranes moist and pink. Dentition is intact. NECK: Shows anterior throat supple without palpable lymphadenopathy noted. Swallow reflex symmetrical. CHEST: Shows normal on inspection. Breath sounds are clear bilaterally, no rales or rhonchi. HEART: Shows S1, S2 clear. No murmurs auscultated. ABDOMEN: Soft, nontender, nondistended, obese. BACK: Shows spine grossly in the midline. Normal-appearing cervical lordotic curvature. There is increased thoracic kyphosis, some flattening of the lumbar lordotic curvature. Well-healed surgical scar is noted. Lumbar paraspinous muscles show symmetrical on inspection, on palpation shows some moderate tenderness diffusely throughout the upper, middle and lower distribution of the paraspinous muscles, without specific trigger points, without radiation of pain. The patient has good rotational motion of the lumbar spine, both laterally as well as extension and flexion without significant difficulty. No tenderness over the spinous processes, sacrum or sacroiliac regions. EXTREMITIES: Lower extremities show deep tendon reflexes 1+ in the patellar and tendo calcaneus tendons. Motor exam is 5 on a scale of 5 with right dorsiflexion, extension, quadriceps and hamstring flexion and 5/5 on the left. Peripheral pulses are 1+ posterior tibial. No peripheral edema is noted bilaterally. Lower extremities are warm and dry. SKIN: Shows warm and dry, good turgor. No edema. No sores, rashes or bruising throughout. Procedure: Procedure: Options discussed with patient. Patient's chart was reviewed as her current medication regimen updated current review of systems updated today as well. We will refill patient's oxycodone as well as MS Contin with 2-month prescription as patient has had appropriate K tracks reporting as well as appropriate urinalyses to date. Patient was given instructions well side effects with each of the medications. Patient will follow up in approximate 2 months or sooner as necessary. Medication Injected: Med Injected: None Condition at Discharge: Condition at Discharge: Condition at discharge is stable. COURTNEY MAJOR MD Oct 13, 2020 12:27
== END | disposition home or self-care (01) ==
LOC: PNCL 11:29
PROVIDERS: ATTEND Anesthesiology
DX: M51.16 Intervertebral disc disorders with radiculopathy, lumbar region (principal); M48.061 Spinal stenosis, lumbar region without neurogenic claudication; M96.1 Postlaminectomy syndrome, not elsewhere classified; M79.18 Myalgia, other site; E66.9 Obesity, unspecified; E11.9 Type 2 diabetes mellitus without complications; F41.9 Anxiety disorder, unspecified; F32.9 Major depressive disorder, single episode, unspecified; Z90.710 Acquired absence of both cervix and uterus; Z98.890 Other specified postprocedural states; Z79.84 Long term (current) use of oral hypoglycemic drugs; Z83.3 Family history of diabetes mellitus
CPT/HCPCS: 99212; G0463

== ENCOUNTER → 2020-12-21 | Outpatient (CLI) | payer BC ==
[2015-05-05 10:48] VITALS: BP 108/64
[~2020-12-21] MED LIST changes: +MORP30TA83 PO
--- NOTE | 2020-12-21 16:55 | PDOC ---
Progress Note - Pain Clinic Date of Service: DOS: DATE: 12/21/20 TIME: 16:51 Diagnosis: Dx: Myofascial pain Lumbar to colopathy with lumbar degenerative disease lumbar spinal stenosis and lumbar postlaminectomy syndrome History or Present Illness: HPI: 50-year-old female returns for follow-up status post medication management with MS Contin and oxycodone. Patient reports has been doing very well at this point. Stable regimen reports about 70% improvement and was starting to wean down with her medications though she had a setback with increased activity with some increased pain has gotten back to her regular regimen but still trying to wean down on this again. Patient reports no side effects with the medication enables her to decrease the pain by approximately 75% with the medication. Patient reports no side effects once again no new motor or sensory deficits no bowel or bladder incontinence or other complaints. Patient reports pain in the mid back low back neck and shoulders mainly in the low back and alternates from right to left side to the upper extremities as well more the left than the right but in the left lower extremity patient reports aching sharp dull tight burning cramping stabbing can be radiating lower extremities constant and severe at times rated at 8 on scale 10 is worse over the past week 6 on average 3 displeasing is a 6 today patient reports no new motor or sensory deficits no new bowel or bladder incontinence. Physical Exam: VS: Blood pressure is 120/87 pulse 99 respirations 18 temperature 98.2 F 237 pounds. PE: PHYSICAL EXAMINATION: GENERAL: The patient is awake, alert, oriented, appropriate, very pleasant demeanor HEENT: Shows normocephalic, atraumatic. Extraocular movements are intact and symmetrical. Oral cavity: Mucous membranes moist and pink. Dentition is intact. NECK: Shows anterior throat supple without palpable lymphadenopathy noted. Swallow reflex symmetrical. CHEST: Shows normal on inspection. Breath sounds are clear bilaterally, no rales rhonchi or wheezes auscultated. HEART: Shows S1, S2 clear. No murmurs auscultated. ABDOMEN: Soft, nontender, nondistended, obese. No palpable organomegaly is noted. BACK: Shows spine grossly in the midline. Normal-appearing cervical lordotic cu rvature. There is increased thoracic kyphosis, some flattening of the lumbar lordotic curvature. Lumbar paraspinous muscles show symmetrical on inspection, on palpation shows some moderate tenderness diffusely throughout the upper, middle and lower distribution of the paraspinous muscles without specific trigger points, without radiation of pain. The patient has good rotational motion of the lumbar spine, both laterally as well as extension and flexion without significant difficulty. No tenderness over the spinous processes, sacrum or sacroiliac regions. EXTREMITIES: Lower extremities show deep tendon reflexes 1+ in the patellar and tendo calcaneus tendons. Motor exam is 5 on a scale of 5 with right dorsiflexion, extension, quadriceps and hamstring flexion and 5/5 on the left. Peripheral pulses are 1+ posterior tibial. No peripheral edema is noted bilaterally. Lower extremities are warm and dry. SKIN: Shows warm and dry, good turgor. No edema. No sores, rashes or bruising throughout. Procedure: Procedure: Options were discussed with the patient. Patient's old chart was reviewed as her current medication regimen updated current review of systems updated today as well. We will refill patient's MS Contin as well as oxycodone as patient has been on a very stable regimen and has had appropriate K tracks reporting and appropriate urinalyses to date. She was given a 1 month prescription and we electronically prescribed and patient will follow up in approximate 4 weeks for telemedicine visit at that time. Medication Injected: Med Injected: None Condition at Discharge: Condition at Discharge: Condition at discharge is stable. COURTNEY MAJOR MD Dec 21, 2020 16:55
== END | disposition home or self-care (01) ==
LOC: PNCL 15:16
PROVIDERS: ATTEND Anesthesiology
DX: M51.16 Intervertebral disc disorders with radiculopathy, lumbar region (principal); M79.18 Myalgia, other site; M96.1 Postlaminectomy syndrome, not elsewhere classified; M48.061 Spinal stenosis, lumbar region without neurogenic claudication; E11.9 Type 2 diabetes mellitus without complications; E66.9 Obesity, unspecified; F41.9 Anxiety disorder, unspecified; F32.9 Major depressive disorder, single episode, unspecified; Z79.899 Other long term (current) drug therapy; Z98.890 Other specified postprocedural states; Z90.49 Acquired absence of other specified parts of digestive tract; Z90.710 Acquired absence of both cervix and uterus; Z82.49 Family history of ischemic heart disease and other diseases of the circulatory system
CPT/HCPCS: 99212; G0463

== ENCOUNTER → 2021-01-18 | Outpatient (CLI) | payer BC ==
[2015-05-05 10:48] VITALS: BP 108/64
--- NOTE | 2021-01-18 14:28 | NUR ---
Patient called states she needs refills on meds verified name and date of , verified no med changes, verified pharmacy, patient denies any new medical problems. patient sates constipation is under control. patient verified next appointment. Call transferred to Dr Bryan for refills .
--- NOTE | 2021-01-18 14:47 | PDOC ---
Progress Note - Pain Clinic Date of Service: DOS: DATE: 01/18/21 TIME: 14:46 Diagnosis: Dx: Myofascial pain Lumbar radiculopathy with lumbar degenerative disease lumbar spinal stenosis lumbar postlaminectomy syndrome History or Present Illness: HPI: Telemedicine visit today for patient with identity verified with date of as well as full name, total time spent: 11 minutes 50-year-old female via telemedicine visit today requesting refill oxycodone and morphine sulfate, patient has been on very stable regimen with these medicines without significant side effects and reports still doing fairly well in this fairly stable reports about a 70% improvement overall again without side effects. Patient reports no new motor or sensory deficits of pain base of the neck and shoulder as well as the low back and the bilateral lower extremities and generalized pain with muscular aching and myofascial syndrome. Patient has had appropriate K tracks report as well as appropriate urinalyses to date. We will electronically prescribe patient's medications patient was given instructions well side effects with each of the medications and will follow up in approximate 4 weeks as scheduled. Physical Exam: PE: COURTNEY MAJOR MD Jan 18, 2021 14:47
== END | disposition home or self-care (01) ==
LOC: PNCL 14:20
PROVIDERS: ATTEND Anesthesiology
DX: M79.18 Myalgia, other site (principal); M51.16 Intervertebral disc disorders with radiculopathy, lumbar region; M48.061 Spinal stenosis, lumbar region without neurogenic claudication; M96.1 Postlaminectomy syndrome, not elsewhere classified; E11.9 Type 2 diabetes mellitus without complications; E66.9 Obesity, unspecified; F41.9 Anxiety disorder, unspecified; F32.9 Major depressive disorder, single episode, unspecified; Z90.710 Acquired absence of both cervix and uterus; Z98.890 Other specified postprocedural states; Z79.84 Long term (current) use of oral hypoglycemic drugs; Z79.899 Other long term (current) drug therapy
CPT/HCPCS: G0463

== ENCOUNTER → 2021-02-17 | Outpatient (CLI) | payer BC ==
[2015-05-05 10:48] VITALS: BP 108/64
--- NOTE | 2021-02-17 08:13 | PDOC ---
Progress Note - Pain Clinic Date of Service: DOS: DATE: 02/17/21 TIME: 08:10 Diagnosis: Dx: Lumbar radiculopathy with lumbar degenerative disease lumbar spinal stenosis lumbar postlaminectomy syndrome Myofascial pain History or Present Illness: HPI: 50-year-old female returns in follow-up status post medication management with both oxycodone and MS Contin patient reports has been doing very well with this been a very stable regimen has had some increased stress lately with work activities but otherwise is doing fairly well with the medication regimen without any specific side effects reports approximately 70% improvement in the pain most days. Patient reports has been working out daily or every other day to the best of her ability and has a fitness trainer which is helpful as well and she has been doing this more consistently recently as she feels that this does help her overall wellbeing as well as decrease the pain to some extent. Patient reports no bowel or bladder incontinence no loss of motor function has some difficulty with her left wrist which is painful after surgery as well. Patient reports no bowel or bladder incontinence and again no side effects with her medication. Physical Exam: VS: Blood pressure is 146/99 pulse 90 respirations 18 temperature 98.1 F height is 5 foot 10 inches weight is 238 pounds PE: PHYSICAL EXAMINATION: GENERAL: The patient is awake, alert, oriented, appropriate, very pleasant in demeanor HEENT: Shows normocephalic, atraumatic. Extraocular movements are intact and symmetrical. Oral cavity: Mucous membranes moist and pink. Dentition is intact. NECK: Shows anterior throat supple without palpable lymphadenopathy noted. Swallow reflex symmetrical. CHEST: Shows normal on inspection. Breath sounds are clear bilaterally. HEART: Shows S1, S2 clear. No murmurs auscultated. ABDOMEN: Soft, nontender, nondistended, obese. No palpable organomegaly is noted. BACK: Shows spine grossly in the midline. Normal-appearing cervical lordotic curvature. There is increased thoracic kyphosis, some flattening of the lumbar lordotic curvature, with well-healed surgical scarring. Lumbar paraspinous muscles show symmetrical on inspection, on palpation shows some moderate tenderness diffusely throughout the upper, middle and lower distribution of the paraspinous muscles without specific trigger points, without radiation of pain. The patient has good rotational motion of the lumbar spine, both laterally as well as extension and flexion without significant difficulty. EXTREMITIES: Lower extremities show deep tendon reflexes 1+ in the patellar and tendo calcaneus tendons. Motor exam is 5 on a scale of 5 with right dorsiflexion, extension, quadriceps and hamstring flexion and 5/5 on the left. Peripheral pulses are 1+ posterior tibial. No peripheral edema is noted bilaterally. Lower extremities are warm and dry. SKIN: Shows warm and dry, good turgor. No edema. No sores, rashes or bruising throughout. Procedure: Procedure: Options discussed with the patient. Patient chart was reviewed as her current medication regimen updated current review of systems updated today as well. We will refill patient's oxycodone as well as MS Contin with instructions side effects beware of discussed each of the medications. Patient has been on a stable regimen and has had appropriate K tracks reporting as well as appropriate urinalyses to date. We will refill for 30-day. Patient was given instructions as well as side effects beware with the medications once again. Patient will follow up in approximate 4 weeks as scheduled. Medication Injected: Med Injected: None Condition at Discharge: Condition at Discharge: Condition at discharge is stable. COURTNEY MAJOR MD Feb 17, 2021 08:13
== END | disposition home or self-care (01) ==
LOC: PNCL 07:47
PROVIDERS: ATTEND Anesthesiology
DX: M51.16 Intervertebral disc disorders with radiculopathy, lumbar region (principal); M48.061 Spinal stenosis, lumbar region without neurogenic claudication; M96.1 Postlaminectomy syndrome, not elsewhere classified; M79.18 Myalgia, other site; E11.9 Type 2 diabetes mellitus without complications; E66.9 Obesity, unspecified; F41.9 Anxiety disorder, unspecified; F32.9 Major depressive disorder, single episode, unspecified; Z79.84 Long term (current) use of oral hypoglycemic drugs; Z79.899 Other long term (current) drug therapy; Z90.710 Acquired absence of both cervix and uterus; Z98.890 Other specified postprocedural states
CPT/HCPCS: 99212; G0463

== ENCOUNTER → 2021-03-22 | Outpatient (CLI) | payer BC ==
[2015-05-05 10:48] VITALS: BP 108/64
[~2021-03-22] MED LIST changes: +CYCL10TA19 PO; -CYCL10TA2 PO; +TIZA-75 PO; -TIZA4TAB2 PO
--- NOTE | 2021-03-22 15:48 | PDOC ---
Progress Note - Pain Clinic Date of Service: DOS: DATE: 03/22/21 TIME: 15:44 Diagnosis: Dx: Myofascial pain Lumbar to colopathy with lumbar degenerative disease lumbar spinal stenosis and lumbar postlaminectomy syndrome History or Present Illness: HPI: Telemedicine visit with identity verified with complete date of and full name, total time spent 11 minutes. 50-year-old female via telemedicine visit requesting refills of medication both MS Contin and oxycodone. Patient has had very good success with decreased pain and only occasional constipation but remedied very well with [id number] and hydration techniques. Patient reports no new motor or sensory deficits some fatigability in the lower extremities in the low back patient reports pain medication decrease the pain by about 70% without other side effects. Patient has had appropriate K tracks portables appropriate urinalyses to date. Patient medication will be electronically prescribed both MS Contin and oxycodone with instructions side effects aware discussed with the each. Patient will follow up in approximate 4 weeks as scheduled Physical Exam: PE: COURTNEY MAJOR MD Mar 22, 2021 15:48
== END | disposition home or self-care (01) ==
LOC: PNCL 09:55
PROVIDERS: ATTEND Anesthesiology
DX: M79.18 Myalgia, other site (principal); M51.16 Intervertebral disc disorders with radiculopathy, lumbar region; M48.061 Spinal stenosis, lumbar region without neurogenic claudication; M96.1 Postlaminectomy syndrome, not elsewhere classified; E66.9 Obesity, unspecified; E11.9 Type 2 diabetes mellitus without complications; F41.9 Anxiety disorder, unspecified; F32.9 Major depressive disorder, single episode, unspecified; Z79.899 Other long term (current) drug therapy; Z90.710 Acquired absence of both cervix and uterus; Z98.890 Other specified postprocedural states
CPT/HCPCS: 99212; G0463

== ENCOUNTER → 2021-04-14 | Outpatient (CLI) | payer BC ==
[2015-05-05 10:48] VITALS: BP 108/64
--- NOTE | 2021-04-14 09:25 | PDOC ---
Progress Note - Pain Clinic Date of Service: DOS: DATE: 04/14/21 TIME: : Diagnosis: Dx: Lumbar radiculopathy lumbar degenerative disease lumbar spinal stenosis and lumbar postlaminectomy syndrome Myofascial pain History or Present Illness: HPI: 50-year-old female returns status post medication management both MS Contin and oxycodone. Patient reports that she is been doing very well with the medications and would like to reduce her amount of medication as well. Patient reports also that she is going through a difficult time as she and her are now . Patient has pain in the base the neck and shoulders upper back mid back low back and left lower extremity radicular fashion rated as a 9 on scale 10 is worse over the past week 6 on average 3 distillation is a 3 today patient reports aching sharp on and off tight and shooting in the back and legs constant and burning in the neck and shoulders worse with activity patient reports better at night and it does awaken her from sleep about once every 2-3 hours recently patient has been staying active however she has been losing some weight also been walking her dog several times a day and getting some exercise that way also. Patient reports no side effects reports overall about the 75% improvement with medications and again would like to reduce the immediate release medications through today as she has not been eating as many as we have prescribed at this point. Physical Exam: VS: Blood pressure is 149/107 pulse 96 respirations 18 temperature 99.1 F weight is 217 pounds PE: PHYSICAL EXAMINATION: GENERAL: The patient is awake, alert, oriented, appropriate, very pleasant in demeanor HEENT: Shows normocephalic, atraumatic. Extraocular movements are intact and s ymmetrical. Oral cavity: Mucous membranes moist and pink. Dentition is intact. NECK: Shows anterior throat supple without palpable lymphadenopathy noted. Swallow reflex symmetrical. CHEST: Shows normal on inspection. Breath sounds are clear bilaterally. HEART: Shows S1, S2 clear. No murmurs auscultated. ABDOMEN: Soft, nontender, nondistended. No palpable organomegaly is noted. BACK: Shows spine grossly in the midline. Normal-appearing cervical lordotic curvature. There is increased thoracic kyphosis, some flattening of the lumbar lordotic curvature. Lumbar paraspinous muscles show symmetrical on inspection, on palpation shows some moderate tenderness diffusely throughout the upper, middle and lower distribution of the paraspinous muscles without specific trigger points, without radiation of pain. The patient has good rotational motion of the lumbar spine, both laterally as well as extension and flexion without significant difficulty. EXTREMITIES: Lower extremities show deep tendon reflexes 1+ in the patellar and tendo calcaneus tendons. Motor exam is 5 on a scale of 5 with right dorsiflexion, extension, quadriceps and hamstring flexion and 5/5 on the left. Peripheral pulses are 1+ posterior tibial. No peripheral edema is noted bilaterally. Lower extremities are warm and dry. Upper extremity show deep tendon reflexes 2+ in the bicep tricep tendons, motor exam is strong with sales and production manager strength rated 5 out of 5 as is bicep and tricep flexion and equal. SKIN: Shows warm and dry, good turgor. No edema. No sores, rashes or bruising throughout. Procedure: Procedure: Options were discussed with the patient. Patient chart was reviewed as her current medication regimen updated current review of systems updated today as well. Patient has had appropriate K tracks report as well as appropriate urinalyses to date. We will refill patient's MS Contin at 30 mg every 12 hours also decrease oxycodone 10 mg to 60tablets a month instead of 120. Patient also with elevated blood pressure today we did did discuss this with patient and she will follow up with her primary care physician regarding her antihypertensive regimen as well. Patient to follow-up in approximately 4 weeks as scheduled. Medication Injected: Med Injected: None Condition at Discharge: Condition at Discharge: Condition at discharge is stable. COURTNEY MAJOR MD Apr 14, 2021 09:24
== END | disposition home or self-care (01) ==
LOC: PNCL 08:21
PROVIDERS: ATTEND Anesthesiology
DX: M51.16 Intervertebral disc disorders with radiculopathy, lumbar region (principal); M48.061 Spinal stenosis, lumbar region without neurogenic claudication; M96.1 Postlaminectomy syndrome, not elsewhere classified; M79.18 Myalgia, other site; E11.9 Type 2 diabetes mellitus without complications; E66.9 Obesity, unspecified; F41.9 Anxiety disorder, unspecified; F32.9 Major depressive disorder, single episode, unspecified; Z90.710 Acquired absence of both cervix and uterus; Z98.890 Other specified postprocedural states; Z79.82 Long term (current) use of aspirin; Z79.84 Long term (current) use of oral hypoglycemic drugs
CPT/HCPCS: 99212; G0463

== ENCOUNTER → 2021-05-15 | Outpatient (CLI) | payer BC ==
[2015-05-05 10:48] VITALS: BP 108/64
--- NOTE | 2021-05-15 10:56 | NUR ---
Patient called requesting a refill. Verified patient, , pharmacy, new medications. Patient states her level of pain is a 5-6. Denies any new medical problems, or constipation. patients ktarcts is ok. call transferred to Dr Bryan .
--- NOTE | 2021-05-15 11:20 | PDOC ---
Progress Note - Pain Clinic Date of Service: DOS: DATE: 05/15/21 TIME: 11:17 Diagnosis: Dx: Myofascial pain Lumbar radiculopathy with lumbar degenerative disease lumbar spinal stenosis and lumbar postlaminectomy syndrome History or Present Illness: HPI: Telemedicine visit today with patient ID verified with full name as well as date of , total time spent 12 minutes 50-year-old female via telemedicine visit today with the refill request for oxycodone as well as MS Contin. Patient reports doing very well with each of t hese and we discussed reducing the amounts which we will do very slowly as patient is doing better with still some significant pain at base of neck shoulders upper back mid back and low back but doing better and expresses wishes to decrease the medication. Patient has had no significant side effects with medication and does well with about a 75+ percent improvement with the pain we will begin to decrease this on a very gradual basis. Patient has had some significant emotional stressors in the last month as well causing the pain to be amplified but is very aware of this reason for the application and understands this is not a physical change but emotional and has not been overtaking her medications due to this. Patient has had appropriate K tracks report as well as appropriate urinalyses to date as well. We will refill patient's medication for 1 month schedule. Medications will be electronically prescribed. Patient is given instructions well side effects beware with the medication we will follow- up in approximate 30 days as scheduled. Physical Exam: PE: COURTNEY MAJOR MD May 15, 2021 11:20
== END | disposition home or self-care (01) ==
LOC: PNCL 10:21
PROVIDERS: ATTEND Anesthesiology
DX: M51.16 Intervertebral disc disorders with radiculopathy, lumbar region (principal); M48.061 Spinal stenosis, lumbar region without neurogenic claudication; M96.1 Postlaminectomy syndrome, not elsewhere classified; M79.18 Myalgia, other site; E66.9 Obesity, unspecified; E11.9 Type 2 diabetes mellitus without complications; F41.9 Anxiety disorder, unspecified; F32.9 Major depressive disorder, single episode, unspecified; Z79.84 Long term (current) use of oral hypoglycemic drugs; Z79.899 Other long term (current) drug therapy; Z98.890 Other specified postprocedural states
CPT/HCPCS: G0463

== ENCOUNTER → 2021-06-12 | Outpatient (CLI) | payer BC ==
[2015-05-05 10:48] VITALS: BP 108/64
[~2021-06-12] MED LIST changes: -LURA40TA PO; +LURA40TA2 PO
--- NOTE | 2021-06-12 16:18 | PDOC ---
Progress Note - Pain Clinic Date of Service: DOS: DATE: 06/12/21 TIME: 16:15 Diagnosis: Dx: Lumbar radiculopathy with lumbar degenerative disease lumbar spinal stenosis with lumbar postlaminectomy syndrome Myofascial pain History or Present Illness: HPI: Telemedicine visit with identity verified with full name as well as full date of , total time spent 12 minutes 50-year-old female via telemedicine visit today with request for refill of extended release morphine. Patient has been on very stable regimen I also we discussed with her on her last visit decreasing oxycodone which she has done and is not taking it but once every 3 to 4 days on average. Patient reports he is doing fairly well with this routine so far and the morphine is taking care of the majority of her pain and she does tolerate it very well without any specific side effects. Patient reports approximate 70% improvement in pain reduction overall. Patient reports occasional constipation but only rarely and usually is able to remedy this with increased hydration or [id number] laxative if necessary but again this is rare. Patient reports no new side effects, patient is had appropriate K tracks report as well as appropriate urinalyses to date. We will electronically prescribed the extended-release morphine but not refill oxycodone at this time as she does not require this. Patient is given instructions well side effects beware with the medication. Patient will follow up as scheduled. Physical Exam: PE: COURTNEY MAJOR MD Jun 12, 2021 16:18
--- NOTE | 2021-06-12 16:29 | NUR ---
Pt called clinic requesting a refill on her Morphine ER that she takes bid. States her pain level averages 4-5/10. Also states that she is really not needing her Oxycodone for breakthrough pain. Pt states no new health issues or constipation from medication. Pharmacy and next appt. verified. Pt. spoke to Dr. Bryan prior to him E-scribing her medication. Gloria GAR
== END | disposition home or self-care (01) ==
LOC: PNCL 13:12
PROVIDERS: ATTEND Anesthesiology
DX: M51.16 Intervertebral disc disorders with radiculopathy, lumbar region (principal); M48.061 Spinal stenosis, lumbar region without neurogenic claudication; M96.1 Postlaminectomy syndrome, not elsewhere classified; M79.18 Myalgia, other site; E11.9 Type 2 diabetes mellitus without complications; F41.9 Anxiety disorder, unspecified; F32.9 Major depressive disorder, single episode, unspecified; E66.9 Obesity, unspecified; Z79.84 Long term (current) use of oral hypoglycemic drugs; Z79.899 Other long term (current) drug therapy; Z90.710 Acquired absence of both cervix and uterus; Z98.890 Other specified postprocedural states
CPT/HCPCS: 99212; G0463

== ENCOUNTER → 2021-07-11 | Outpatient (CLI) | payer BC ==
[2015-05-05 10:48] VITALS: BP 108/64
--- NOTE | 2021-07-11 12:50 | NUR ---
Patient called requesting a refill. Patient name and verified, pharmacy verified, denies any new medications or medical problems. Ktracts is correct, denied constipation or new allergies. states pain level is a 4. Call transferred to Dr Bryan.
--- NOTE | 2021-07-11 13:04 | PDOC ---
Progress Note - Pain Clinic Date of Service: DOS: DATE: 07/11/21 TIME: 13:01 Diagnosis: Dx: Myofascial pain Lumbar radiculopathy with lumbar degenerative disease lumbar spinal stenosis and lumbar postlaminectomy syndrome History or Present Illness: HPI: Telemedicine visit today with patient's identity verified with full name as well as full date of , total time spent 14 minutes telephone voice only. 50-year-old female via telemedicine visit today requesting refill of MS Contin and oxycodone for breakthrough pain. Patient reports he is doing very well we have decreased her oxycodone to only 60 tablets a month after her last visit and still taking MS Contin 30mg every 12 hours patient reports with this regimen she is still doing very well with about a 70 to 75% improvement with the pain even on the lower amount of breakthrough oxycodone. Patient reports no specific side effects with the medications has had appropriate K tracks reporting as well as appropriate urinalyses to date. Patient reports she is going through a divorce currently and is requesting 90-day follow-ups as her insurance is changed and is quite expensive for her at this current time. Options were discussed with patient and we will refill patient's medication for 30-day prescription. Patient given instructions well side effects aware of each of the medications, and will follow up in approximate 30 days as scheduled. Physical Exam: PE: COURTNEY MAJOR MD Jul 11, 2021 13:04
== END | disposition home or self-care (01) ==
LOC: PNCL 10:11
PROVIDERS: ATTEND Anesthesiology
DX: M79.18 Myalgia, other site (principal); M51.16 Intervertebral disc disorders with radiculopathy, lumbar region; M48.061 Spinal stenosis, lumbar region without neurogenic claudication; M96.1 Postlaminectomy syndrome, not elsewhere classified; E66.9 Obesity, unspecified; E11.9 Type 2 diabetes mellitus without complications; F41.9 Anxiety disorder, unspecified; F32.9 Major depressive disorder, single episode, unspecified; Z79.84 Long term (current) use of oral hypoglycemic drugs; Z79.899 Other long term (current) drug therapy; Z90.710 Acquired absence of both cervix and uterus; Z98.890 Other specified postprocedural states
CPT/HCPCS: 99212; G0463

== ENCOUNTER → 2021-08-15 | Outpatient (CLI) | payer BC ==
[2015-05-05 10:48] VITALS: BP 108/64
--- NOTE | 2021-08-15 16:06 | NUR ---
Pt called clinic requesting Dr. Bryan refill her monthly MS Contin and Oxycodone for her chronic pain. States her pain level has be worse at 8/10 since decreasing her dosing schedule. Pt. denies new health issues, side effects, or constipation. Pts. pharmacy and next in clinic appt. verified. Dr. Bryan spoke with pt. by phone and then E-scribed her meds. S. Anupama GAR
--- NOTE | 2021-08-15 16:10 | PDOC ---
Progress Note - Pain Clinic Date of Service: DOS: DATE: 08/15/21 TIME: 16:05 Diagnosis: Dx: Myofascial pain Lumbar radiculopathy with lumbar degenerative disease, postlaminectomy syndrome, and lumbar spinal stenosis Cervical degenerative disease with cervical radiculopathy History or Present Illness: HPI: Telemedicine visit today with patient's identity verified with full name as well as full date of , total time spent 11 minutes, telephone voice only 50-year-old female via telemedicine visit today patient requesting oxycodone and MS Contin refill. Patient is been on very stable regimen with the medications and without any specific side effects. Patient reports he is in increased pain however in the base the neck and shoulders over the past week or so with increased stress at home as well as at work and also increased activity in both places as well. Patient reports it feels like her neck is swollen and is excruciatingly painful to the point where she left work early today because the pain was becoming so severe. Patient reports better with medications but generally has about a 70 to 75% improvement now is about 50% with the neck collar low back still doing fairly well with the current regimen. Patient reports again no specific side effects has had appropriate K tracks report as well as appropriate urinalyses to date as well. We discussed options with the patient and we will increase the number of her breakthrough medication of oxycodone to 100 tablets at 10 mg instead of normally 60. Patient be given MS Contin 30 mg #60 to take once twice daily. Patient will follow up in approximately 30 days as scheduled or sooner as necessary. Physical Exam: PE: COURTNEY MAJOR MD Aug 15, 2021 16:10
== END | disposition home or self-care (01) ==
LOC: PNCL 15:24
PROVIDERS: ATTEND Anesthesiology
DX: M79.18 Myalgia, other site (principal); M51.16 Intervertebral disc disorders with radiculopathy, lumbar region; M96.1 Postlaminectomy syndrome, not elsewhere classified; M48.061 Spinal stenosis, lumbar region without neurogenic claudication; M50.10 Cervical disc disorder with radiculopathy, unspecified cervical region; E66.9 Obesity, unspecified; E11.9 Type 2 diabetes mellitus without complications; F41.9 Anxiety disorder, unspecified; F32.9 Major depressive disorder, single episode, unspecified; Z90.710 Acquired absence of both cervix and uterus; Z98.890 Other specified postprocedural states; Z79.899 Other long term (current) drug therapy; Z79.84 Long term (current) use of oral hypoglycemic drugs
CPT/HCPCS: 99212; G0463

== ENCOUNTER → 2021-09-18 | Outpatient (CLI) | payer BC ==
[2015-05-05 10:48] VITALS: BP 108/64
--- NOTE | 2021-09-18 15:50 | PDOC ---
Progress Note - Pain Clinic Date of Service: DOS: DATE: 09/18/21 TIME: 15:48 Diagnosis: Dx: Myofascial pain Lumbar radiculopathy with lumbar degenerative disease lumbar spinal stenosis and lumbar postlaminectomy syndrome History or Present Illness: HPI: Telemedicine visit today with patient's identity verified with full name as well as full date of , total time spent 11 minutes, telephone voice only. [age]-year-old via telemedicine visit today requesting refill of oxycodone and MS Contin. Patient reports has been doing very well we decreased her oxycodone down to 60 tablets from 120 in March and she is doing quite well with twice a day MS Contin as well as twice a day oxycodone for breakthrough. In July she had a flare of pain and we will increase the oxycodone to 100 tablets a month and now we will back and back down to 60. Patient reports he is doing better still has some significant pain but the medication is allowing her to maintain her daily activities without significant disruption and reports overall about 7 0% improvement with the medicines without side effects. Patient has had appropriate K tracks report as well as appropriate urinalyses to date as well. We will electronically prescribed medications, and she was given instructions as well as side effects to be aware of with each of them. Patient to follow-up in approximately 30 days as scheduled. COURTNEY MAJOR MD September 18, 2021 15:50
== END | disposition home or self-care (01) ==
LOC: PNCL 11:07
PROVIDERS: ATTEND Anesthesiology
DX: M79.18 Myalgia, other site (principal); M51.16 Intervertebral disc disorders with radiculopathy, lumbar region; M48.061 Spinal stenosis, lumbar region without neurogenic claudication; M96.1 Postlaminectomy syndrome, not elsewhere classified; E66.9 Obesity, unspecified; E11.9 Type 2 diabetes mellitus without complications; F41.9 Anxiety disorder, unspecified; F32.9 Major depressive disorder, single episode, unspecified; Z90.710 Acquired absence of both cervix and uterus; Z98.890 Other specified postprocedural states; Z79.899 Other long term (current) drug therapy
CPT/HCPCS: G0463